=== PATIENT | female | born 1945 | race Caucasian/White ===

== ENCOUNTER → 2018-08-04 16:12 | Outpatient (CLI) | payer MEDICARE, OTHER, BC, SELFPAY | PROVIDERS: Visit Provider Family Medicine | DX: R30.0 Dysuria (principal) | CPT/HCPCS: 87086; 87088 ==

== ENCOUNTER → 2024-09-24 | Outpatient (CLI) | payer MEDICARE, OTHER, SELFPAY ==
[2024-09-24 10:59] LABS: Cholesterol 235 mg/dL (<=200); High Density Lipoprotein 53 mg/dL; Low Density Lipoprotein Calc. 143 mg/dL; Triglycerides 192 mg/dL; Very Low Density Lipoprotein 38 mg/dL (5-40); cholesterol:hdl ratio screen 4.42
[2024-09-24 11:01] LABS: Hemoglobin A1c 5.4 % (<=5.6)
== END | disposition home or self-care (01) ==
LOC: MTLAB 09:02
PROVIDERS: PCP Family Medicine; Referring Provider Psychiatry & Neurology Neurology; Visit Provider Psychiatry & Neurology Neurology
DX: I67.9 Cerebrovascular disease, unspecified (principal); E78.5 Hyperlipidemia, unspecified; R73.9 Hyperglycemia, unspecified
CPT/HCPCS: 36415; 80061; 83036

== ENCOUNTER → 2025-01-19 | Outpatient (CLI) | payer MEDICARE, OTHER, SELFPAY ==
--- OUTSIDE RECORDS SUMMARY | 2025-01-19 09:50 | XMS RPT_ITS | CCD ---
Author Organization [facility] Inform ion Partnership [facility] Care Team Providers Care Account Contact Associate Name Role Phone Mathieu Boateng MD Primary Care Provider [phone] Rafi SAMUEL, Dr. Murdock Primary Care Provider [phone] Parminder SAMUEL, Dr. Duong Attending Provider [phone] Parminder SAMUEL, Dr. Duong Referring Provider Rafi, Mathieu Primary Care Unavailable Eloisa Zurita Referring Unavailable Parminder, Eloisa Attending Unavailable Mathieu Boateng MD Primary Care Provider ELIOSA ZURITA Attending Unavailable RAFI, MATHIEU Primary Care Unavailable BAVELOIAS RM Attending Unavailable RAFI, MATHIEU Primary Care Unavailable ELOISA ZURITA Attending Unavailable RAFI, MATHIEU Primary Care Unavailable BAVJAG, ELOISA Attending Unavailable RAFI, MATHIEU Primary Care Unavailable ELOISA ZURITA Attending Unavailable ELOISA ZURITA Referring Unavailable RAFI, MATHIEU Primary Care Unavailable Allergies Allergy Classification Reported Allergen(s) Allergy Type Date of Onset Reaction(s) Facility (18 sources) Bacitracin / Polymyxin B Drug Allergy 1 [facility] (18 sources) Codeine Drug Allergy 6 [facility] (18 sources) Morphine Drug Allergy 6 Hives, Itching [facility] (18 sources) Penicillins Drug Intolerance 6 Hives, Itching, Rash [facility] (18 sources) Sulfonamides (Antibiotic) Propensity to adverse reactions 2 Nausea Only [facility] (11 sources) suvorexant Drug Allergy 4 [facility] Medications Current Medications Medication Drug Class(es) Dates Sig (Normalized) Sig (Original) acetaminophen 325 mg / butalbital 50 mg / caffeine 40 mg oral tablet (12 sources) Barbiturate, Central Nervous System Stimulant, Methylxanthine Start: 02-03-2024 End: 03-04-2024 take 1 tablet by mouth every two hours, then take 4 tablets by mouth every twenty-four hours butalbital-aceta minophen-caffein e 50-325-40 MG tablet Indications: Headache disorder take 1 tablet by mouth every 2 hours if needed for migraines - MAX OF 4 IN 24 HOURS 30 tablet 3 02/03/2024 03/04/2024 Active Start: 11-26-2023 End: 12-26-2023 take 1 tablet by mouth every two hours, then take 4 tablets by mouth every twenty-four hours fxmosdggnf-koavcyaebbbde-snlwgxfa 50-325 -40 MG tablet Indications: Headache disorder take 1 tablet by mouth every 2 hours if needed for migraines - MAX OF 4 IN 24 HOURS 30 tablet 1 11/26/2023 12/26/2023 Active Start: 03-23-2022 End: 05-04-2023 take 1 tablet by mouth every two hours, then take 4 tablets by mouth every twenty-four hours aykxttqprs-xetuostbefikg-hefzqisb 50-325 -40 MG tablet take 1 tablet by mouth every 2 hours if needed for migraines - MAX OF 4 IN 24 HOURS 45 tablet 6 04/04/2023 05/04/2023 Active aspirin 81 mg delayed release oral tablet (2 sources) Platelet Aggregation Inhibitor, Nonsteroidal Anti-inflammatory Drug Start: 10-22-2024 End: 10-22-2025 take 1 tablet by mouth once daily aspirin 81 MG EC tablet Indications: Cerebrovascular disease Take 1 tablet (81 mg) by mouth daily. 30 tablet 11 10/22/2024 10/22/2025 Active buPROPion hydrochloride 75 mg oral tablet (20 sources) Aminoketone Start: 05-29-2022 buPROPion (Wellbutrin) 75 MG tablet Indications: Headache disorder , Multifocal clinically isolated syndrome (HCC) Take 1 tab daily for 14 days, then half a tab daily for 14 days, then stop bupropion 30 tablet 05/29/2022 Active Start: 04-04-2022 End: 08-03-2024 take 1 tablet by mouth once daily buPROPion XL (Wellbutrin XL) 150 MG 24 hr tablet Indications: Headache disorder , Multifocal clinically isolated syndrome (HCC) Take 1 tablet (150 mg) by mouth daily. Do not crush, chew, or split. 30 tablet 11 04/04/2022 08/03/2024 Discontinued Start: 02-27-2022 End: 08-03-2024 take 1 tablet by mouth once daily buPROPion SR (Wellbutrin SR) 150 MG 12 hr tablet Take 150 mg by mouth daily. 02/27/2022 08/03/2024 Discontinued cholecalciferol 0.025 mg oral capsule (18 sources) Vitamin D take 1 capsule by mouth once daily cholecalciferol (Vitamin D-3) 25 MCG (1000 UT) capsule Take 1 capsule by mouth daily. Active gabapentin 800 mg oral tablet (20 sources) Anti-epileptic Agent Start: 11-26-19 End: 11-02-19 take 4 tablets by mouth once daily gabapentin (Neurontin) 800 MG tablet Indications: Primary insomnia , Headache disorder Take 4 tablets (3,200 mg) by mouth Nightly. 360 tablet 3 08/03/2024 Active Start: 07-06-2022 End: 07-03-2023 take 4 tablets by mouth once daily gabapentin (Neurontin) 800 MG tablet Indications: Headache disorder Take 4 tablets (3,200 mg) by mouth Nightly. 360 tablet 3 07/27/2022 04/04/2023 Discontinued (Reorder) Start: 04-04-2022 End: 05-21-2022 take 4 tablets by mouth once daily gabapentin (Neurontin) 800 MG tablet Indications: Headache disorder Take 4 tablets (3,200 mg) by mouth Nightly. 360 tablet 3 04/04/2022 05/21/2022 Discontinued (Reorder) Start: 05-27-2020 End: 08-02-2022 take 3-3.5 tablets by mouth once daily in the evening gabapentin (Neurontin) 800 MG tablet take 3-3.5 tablets by mouth every evening 05/27/2020 Active losartan potassium 50 mg oral tablet (18 sources) Angiotensin 2 Receptor Sana Start: 01-12-2022 take 1 tablet by mouth once daily losartan (Cozaar) 50 MG tablet Take 50 mg by mouth daily. 01/12/2022 Active rosuvastatin calcium 20 mg oral tablet (2 sources) HMG-CoA Reductase Inhibitor Start: 10-22-2024 End: 10-22-2025 take 1 tablet by mouth once daily rosuvastatin (Crestor) 20 MG tablet Indications: Cerebrovascular disease , Mixed hyperlipidemia Take 1 tablet (20 mg) by mouth daily. 30 tablet 2 10/22/2024 10/22/2025 Active sucralfate 1000 mg oral tablet (18 sources) Aluminum Complex Start: 01-13-2022 sucralfate (Carafate) 1 g tablet Take 1 g by mouth in the morning and 1 g at noon and 1 g before bedtime. 01/13/2022 Active Completed/Discontinued Medications Medication Drug Class(es) Dates Sig (Normalized) Sig (Original) gadopiclenol (Vueway) injection 7.5 mL (2 sources) Start: 09-04-2024 End: 09-04-2024 take 7.5 mL intravenously once as needed 7.5 mL, IntraVENous, IMG once PRN, contrast, Starting on Sat09/04/24 at 1416, For 1 dose propranolol hydrochloride 20 mg oral tablet (8 sources) beta-Adrenergic Sana Start: 02-03-2024 End: 02-02-2025 take 1 tablet by mouth twice daily propranolol (Inderal) 20 MG tablet Indications: Essential tremor Take 1 tablet (20 mg) by mouth 2 times daily. 60 tablet 11 02/03/2024 09/22/2024 Discontinued suvorexant 10 mg oral tablet (11 sources) Orexin Receptor Antagonist Start: 05-12-2022 End: 02-03-2024 take 1 tablet by mouth once daily as needed for sleep suvorexant (Belsomra) 10 MG tablet Indications: Chronic insomnia Take 1 tablet (10 mg) by mouth Nightly as needed for sleep. 30 tablet 2 05/17/2022 02/03/2024 Discontinued (Side effects) Problems Active Problems Problem Classification Problem Date Documented Date Episodic/Chronic Diabetes mellitus without complication (3 sources) Hyperglycemia; Translations: [Hyperglycemia, unspecified] Onset: 09-22-2024 09-22-2024 Episodic Disorders of lipid metabolism (7 sources) Hyperlipidemia; Translations: [Hyperlipidemia, unspecified] Onset: 09-22-2024 09-22-2024 Chronic Headache; including migraine (8 sources) Headache disorder; Translations: [Headache disorder] Episodic Headache; including migraine (2 sources) Headache; including migraine; Translations: [Headache, unspecified] Onset: 08-03-2024 Miscellaneous mental health disorders (13 sources) Chronic insomnia; Translations: [Psychophysiologic insomnia] Onset: 09-22-2024 04-04-2023 Chronic Multiple sclerosis (11 sources) Multiple sclerosis; Translations: [Multiple sclerosis] Onset: 09-22-2024 08-03-2024 Chronic Other and ill-defined cerebrovascular disease (3 sources) Cerebrovascular disease; Translations: [Cerebrovascular disease, unspecified] 09-22-2024 Chronic Other and ill-defined cerebrovascular disease (3 sources) Cerebrovascular disease, unspecified; Translations: [Cerebrovascular disease, unspecified] Onset: 09-22-2024 Chronic Other hereditary and degenerative nervous system conditions (5 sources) Essential tremor; Translations: [Essential tremor] Onset: 09-22-2024 02-03-2024 Chronic Other hereditary and degenerative nervous system conditions (1 source) Essential tremor; Translations: [Essential tremor] Onset: 09-22-2024 Chronic Other nervous system disorders (5 sources) Clinically isolated syndrome; 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, unspecified] 04-04-2023 Chronic Other nervous system disorders (2 sources) Sleep related bruxism; 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] 04-04-2023 Chronic Other nervous system disorders (2 sources) Demyelinating disease of central nervous system, unspecified; 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, unspecified (HCC)] Onset: 02-03-2024 Chronic Other nervous system disorders (11 sources) Impaired cognition; Translations: [Other symptoms and signs involving cognitive functions and awareness] 02-03-2024 Episodic Other nervous system disorders (2 sources) Other symptoms and signs involving cognitive functions and awareness; Translations: [Other symptoms and signs involving cognitive functions and awareness] Onset: 08-03-2024 Episodic Residual codes; unclassified (3 sources) Amnesia; Translations: [Other amnesia] 02-03-2024 Episodic Past or Other Problems Problem Classification Problem Date Documented Da te Episodic/Chronic Malaise and fatigue (5 sources) Fatigue; Translations: [Other fatigue] Onset: 02-03-2024 02-03-2024 Episodic Residual codes; unclassified (2 sources) Other amnesia; Translations: [Other amnesia] Onset: 02-03-2024 Episodic Results Test Name Value Interpretation Reference Range Facility Office Visiton 10-22-2024 Follow-up visit [id number] Shayna Pressley 1945 F Date Provider Department Center 10/22/2024 [id number] ZURITA [facility] None Family History Problem Relation Age of Onset Lung cancer Father Family Status - Relation Status Age at Father Mother Notes: hip fracture complications Level of Service:41706 [place] OFFICE/OUTPATIENT ESTABLISHED LOW MDM 20 MIN Reason for Visit and Comments: Follow-up [586413] Insomnia [811157] Normal [facility] Progress Noteon 10-22-2024 Progress Note [facility] [place] [address] [facility] [address] [facility] [address] Dept: [phone] Dept Loc: [phone] Visit type: Established Patient Reason for Visit: Follow-up and Insomnia Assessment and Plan 1. Cerebrovascular disease - rosuvastatin (Crestor) 20 MG tablet; Take 1 tablet (20 mg) by mouth daily., Starting Alejandrina 10/22/2024, Until Sat10/22/2025, Normal - aspirin 81 MG EC tablet; Take 1 tablet (81 mg) by mouth daily., Starting Alejandrina 10/22/2024, Until Sat10/22/2025, Normal 2. Mixed hyperlipidemia - rosuvastatin (Crestor) 20 MG tablet; Take 1 tablet (20 mg) by mouth daily., Starting Alejandrina 10/22/2024, Until Sat10/22/2025, Normal - Lipid panel 3. Primary insomnia Subjective HPI: She reports that her family has been reporting that she is repeating herself. She reports that the eye doctor thinks the vision changes are from developing cataracts. She is not getting headaches that frequently. She reports taht she has occl headaches that she calls TMJ headaches, but they are infrequent. She reports that the essential tremor is no worse. She reports that she is no longer waking up during sleep. She has been noticing tremor in her head. Her handwriting is awful. There is no worsening of the memory. Ask informant to rate the patient's ability using the following scoring system: Dependent= 3 Requires Assistance= 2 Has difficulty but does by self= 1 Normal= 0 Never did the activity but could do now= 0 Never did and would have difficulty now= 1 Score Writing checks, paying bills, balancing checkbook 0 Assembling tax records, business affairs, or papers 0 Shopping alone for clothes, household necessities or groceries 0 Playing a game of skill, working on a hobby 0 Heating water, making a cup of coffee turning off stove after use 0 Preparing a balanced meal 0 Keeping track of current events 0 Paying attention to, understanding, discussing TV, book, magazine 0 Remembering appointments, family occasions, holidays, medications 0 Traveling out of neighborhood, driving, arranging to take a bus 0 Total Score 0 Evaluation Sum scores (range 0-30). Cut-point of 9 (dependent in 3 or more activities) is recommended to indicate impaired function and possible cognitive impairment. We reviewed that her recent vision changes are primarily in the left eye. It was the right eye that had optic neuritis. REVIEW OF SYSTEMS: Review of Systems Constitutional: Negative for appetite change, chills, diaphoresis, fever and unexpected weight change. HENT: Positive for dental problem. Negative for mouth sores. Eyes: Negative for discharge and itching. Respiratory: Negative for chest tightness. Cardiovascular: Negative for chest pain and leg swelling. Gastrointestinal: Negative for rectal pain and vomiting. Endocrine: Negative for polydipsia, polyphagia and polyuria. Genitourinary: Negative for decreased urine volume, flank pain and genital sores. Musculoskeletal: Negative for arthralgias. Skin: Negative for color change. Allergic/Immunologic: Negative for food allergies and immunocompromised state. Neurological: Positive for headaches. TMJ area headache Hematological: Negative for adenopathy. Does not bruise/bleed easily. Psychiatric/Behaviora l: Negative for agitation, behavioral problems, decreased concentration, sleep disturbance and suicidal ideas. Allergies Allergen Reactions Bacitracin-Polymyxin B Belsomra [Suvorexant] Paradoxical insomnia Codeine Other reaction(s): GI Upset Morphine Hives and Itching Sulfa Antibiotics Nausea Only Penicillins Hives, Itching and Rash Current Outpatient Medications: cholecalciferol (Vitamin D-3) 25 MCG (1000 UT) capsule, Take 1 capsule by mouth daily., Disp: , Rfl: gabapentin (Neurontin) 800 MG tablet, Take 4 tablets (3,200 mg) by mouth Nightly., Disp: 360 tablet, Rfl: 3 losartan (Cozaar) 50 MG tablet, Take 50 mg by mouth daily., Disp: , Rfl: sucralfate (Carafate) 1 g tablet, Take 1 g by mouth in the morning and 1 g at noon and 1 g before bedtime., Disp: , Rfl: aspirin 81 MG EC tablet, Take 1 tablet (81 mg) by mouth daily., Disp: 30 tablet, Rfl: 11 rosuvastatin (Crestor) 20 MG tablet, Take 1 tablet (20 mg) by mouth daily., Disp: 30 tablet, Rfl: 2 Past Medical History: Diagnosis Date Hypertension Multiple sclerosis (HCC) Social History Tobacco Use Smoking status: Former Current packs/day: 0.00 Average packs/day: 0.5 packs/day for 41.7 years (20.8 ttl pk-yrs) Types: Cigarettes Start date: 10/16/1969 Quit date: 06/13/2011 Years since quittin.3 Smokeless tobacco: Never Substance Use Topics Alcohol use: Yes Alcohol/week: 7.0 standard drinks of alcohol Types: 7 Glasses of wine per week Past Surgical History: Procedure Laterality Date BREAST SURGERY CHOLECYSTECTOMY HYSTERECTOMY Family History Problem Relation Nam (more content not included)... Normal [facility] 36on 09-25-2024 36 Labs faxed over to [phone] Normal [facility] Calculated very low density lipoprotein (VLDL) cholesterol measurementOrdered By: Eloisa Zurita on 09-24-2024 Calculated very low density lipoprotein (VLDL) cholesterol measurement 38 mg/dL 5-40 [facility] Hemoglobin A1con 09-24-2024 HbA1c (Bld) [Mass fraction] 5.4 % Normal <=5.6 [facility] Comment on above: Result Comment: Norm al < 5.7 % Prediabetic 5.7 - 6.4 % Diabetic >or= 6.5 % Please note range changes. Performed By: #### L 500.0, L501.9985 #### [facility] [address] [place], [address] Hemoglobin A1c percentageOrd ered By: Eloisa Zurita on 09-24-2024 HbA1c (Bld) [Mass fraction] 5.4 % <5.7 [facility] Comment on above: Normal < 5.7 % Predi abetic 5.7 - 6.4 % Diabetic >or= 6.5 % Please note range changes. LDL calc ser/plasOrdered By: Eloisa Zurita on 09-24-2024 Cholesterol in LDL [Mass/Vol] 143 mg/dL [facility] Comment on above: Okpqyhgwac=800-588 m g/dL & Higher Pfpr=754 mg/dL or greater Lipid Profileon 09-24-2024 CHOL:HDL 4.42 Normal [facility] Comment on above: Performed By: #### L 500.4100, L501.9985 #### [facility] [address] [place], [address] Cholesterol [Mass/Vol] 235 mg/dL High <=200 [facility] Comment on above: Result Comment: Chol esterol level, Desirable <200 mg/dL Borderline high cholesterol 200-239 mg/dL High cholesterol >=240 mg/dL Recommendations of the NCEP Adult Treatment Panel for the following risk-cutoff thresholds for the [place] population. Performed By: #### L 500.4100, L501.9985 #### [facility] [address] [place], [address] Cholesterol in HDL [Mass/Vol] 53 mg/dL Normal [facility] Comment on above: Result Comment: Bela onal Cholesterol Education Program (NCEP) guidelines: <40 mg/dL: Low HDL-cholesterol (major risk factor for CHD) >= 60 mg/dL: High HDL-cholesterol (negative risk factor for CHD) HDL-cholesterol is affected by a number of factors, e.g. smoking, exercise, hormones, sex and age. Performed By: #### L 500.4100, L501.9985 #### [facility] [address] [place], [address] Cholesterol in LDL [Mass/Vol] 143 mg/dL Normal [facility] Comment on above: Result Comment: Bord gjluqk=680-130 mg/dL Higher Insj=326 mg/dL or greater Performed By: #### L 500.4100, L501.9985 #### [facility] [address] [place], [address] Cholesterol in VLDL [Mass/Vol] 38 mg/dL Normal 5-40 [facility] Comment on above: Performed By: #### L 500.4100, [id number] #### [facility] [address] [place], [place], [address] Triglyceride [Mass/Vol] 192 mg/dL Normal [facility] Comment on above: Result Comment: The drugs N-Acetylcysteine and Metamizole may falsely depress this assay. Normal range: <150 mg/dL Borderline High: 150-199 mg/dL High: 200-499 mg/dL Very High: >500 mg/dL Performed By: #### L 500.4100, [id number] #### [facility] [address] [place], [place], [address] Screening total cholesterol/ high density lipoprotein (HDL) cholesterol ratioOrdered By: Eloisa Zurita on 09-24-2024 Cholesterol.total/Hamida sterol in HDL [Mass ratio] 4.42 {ratio} [facility] Serum or plasma cholesterol in HDL measurement (mass/volume)Ordered By: Eloisa Zurita on 09-24-2024 Cholesterol in HDL [Mass/Vol] 53 mg/dL >40 [facility] Comment on above: National Cholesterol Education Program (NCEP) guidelines:<40 mg/dL: Low HDL-cholesterol (major risk factor for CHD)>= 60 mg/dL: High HDL-cholesterol (negative risk factor for CHD)HDL-cholesterol is affected by a number of factors, e.g. smoking, exercise, hormones, sex and age. Serum or plasma cholesterol measurement (mass/volume)Ordered By: Eloisa Zurita on 09-24-2024 Cholesterol [Mass/Vol] 235 mg/dL High <201 [facility] Comment on above: Cholesterol level, D esirable <200 mg/dLBorderline high cholesterol 200-239 mg/dLHigh cholesterol >=240 mg/dLRecommendations of the NCEP Adult Treatment Panel for the following risk-cutoff thresholds for the [place] population. Triglycerides measurementOrd ered By: Eloisa Zurita on 09-24-2024 Triglyceride [Mass/Vol] 192 mg/dL <199 [facility] Comment on above: The drugs N-Acetylcy steine and Metamizole may falsely depress this assay. Normal range: <150 mg/dLBorderline High: 150-199 mg/dLHigh: 200-499 mg/dLVery High: >500 mg/dL Office Visiton 09-22-2024 Follow-up visit [id number] Shayna Pressley 1945 F Date Provider Department Center 09/22/2024 [id number] ZURITA [facility] None Family History Problem Relation Age of Onset Lung cancer Father Family Status - Relation Status Age at Father Mother Notes: hip fracture complications Level of Service:23324 [place] OFFICE/OUTPATIENT ESTABLISHED MOD MDM 30 MIN Reason for Visit and Comments: Follow-up [108763] Insomnia [369525] - Normal [facility] Progress Noteon 09-22-2024 Progress Note [facility] [place] [address] [facility] [address] [facility] [address] Dept: [phone] Dept Loc: [phone] Visit type: Established Patient Reason for Visit: Follow-up and Insomnia (/) Assessment and Plan 1. Cerebrovascular disease - Lipid panel - Hemoglobin A1c 2. Multiple sclerosis (HCC) 3. Primary insomnia 4. Essential tremor 5. Hyperlipidemia, unspecified hyperlipidemia type - Lipid panel 6. Hyperglycemia - Hemoglobin A1c Subjective HPI: She reports that her family has been reporting that she is repeating herself. She reports that the eye doctor thinks the vision changes are from developing cataracts. She is not getting headaches that frequently. She reports taht she has occl headaches that she calls TMJ headaches, but they are infrequent. She reports that the essential tremor is no worse. She reports that she is no longer waking up during sleep. She has been noticing tremor in her head. Her handwriting is awful. There is no worsening of the memory. Ask informant to rate the patient's ability using the following scoring system: Dependent= 3 Requires Assistance= 2 Has difficulty but does by self= 1 Normal= 0 Never did the activity but could do now= 0 Never did and would have difficulty now= 1 Score Writing checks, paying bills, balancing checkbook 0 Assembling tax records, business affairs, or papers 0 Shopping alone for clothes, household necessities or groceries 0 Playing a game of skill, working on a hobby 0 Heating water, making a cup of coffee turning off stove after use 0 Preparing a balanced meal 0 Keeping track of current events 0 Paying attention to, understanding, discussing TV, book, magazine 0 Remembering appointments, family occasions, holidays, medications 0 Traveling out of neighborhood, driving, arranging to take a bus 0 Total Score 0 Evaluation Sum scores (range 0-30). Cut-point of 9 (dependent in 3 or more activities) is recommended to indicate impaired function and possible cognitive impairment. We reviewed that her recent vision changes are primarily in the left eye. It was the right eye that had optic neuritis. REVIEW OF SYSTEMS: Review of Systems Constitutional: Negative for appetite change, chills, diaphoresis, fever and unexpected weight change. HENT: Negative for dental problem and mouth sores. Eyes: Negative for discharge and itching. Respiratory: Negative for chest tightness. Cardiovascular: Negative for chest pain and leg swelling. Gastrointestinal: Negative for rectal pain and vomiting. Endocrine: Negative for polydipsia, polyphagia and polyuria. Genitourinary: Negative for decreased urine volume, flank pain and genital sores. Musculoskeletal: Negative for arthralgias. Skin: Negative for color change. Allergic/Immunologic: Negative for food allergies and immunocompromised state. Neurological: Positive for headaches. TMJ area headache Hematological: Negative for adenopathy. Does not bruise/bleed easily. Psychiatric/Behaviora l: Negative for agitation, behavioral problems, decreased concentration, sleep disturbance and suicidal ideas. Allergies Allergen Reactions Bacitracin-Polymyxin B Belsomra [Suvorexant] Paradoxical insomnia Codeine Other reaction(s): GI Upset Morphine Hives and Itching Sulfa Antibiotics Nausea Only Penicillins Hives, Itching and Rash Current Outpatient Medications: cholecalciferol (Vitamin D-3) 25 MCG (1000 UT) capsule, Take 1 capsule by mouth daily., Disp: , Rfl: gabapentin (Neurontin) 800 MG tablet, Take 4 tablets (3,200 mg) by mouth Nightly., Disp: 360 tablet, Rfl: 3 losartan (Cozaar) 50 MG tablet, Take 50 mg by mouth daily., Disp: , Rfl: sucralfate (Carafate) 1 g tablet, Take 1 g by mouth in the morning and 1 g at noon and 1 g before bedtime., Disp: , Rfl: Past Medical History: Diagnosis Date Hypertension Multiple sclerosis (HCC) Social History Tobacco Use Smoking status: Former Current packs/day: 0.00 Average packs/day: 0.5 packs/day for 41.7 years (20.8 ttl pk-yrs) Types: Cigarettes Start date: 10/16/1969 Quit date: 06/13/2011 Years since quittin.2 Smokeless tobacco: Never Substance Use Topics Alcohol use: Yes Alcohol/week: 7.0 standard drinks of alcohol Types: 7 Glasses of wine per week Past Surgical History: Procedure Laterality Date BREAST SURGERY CHOLECYSTECTOMY HYSTERECTOMY Family History Problem Relation Name Age of Onset Lung cancer Father Objective Vitals: BP (!) 151/77 (BP Location: Right arm, Patient Position: Sitting, BP Cuff Size: Adult) Pulse 64 Ht 5' 7 (1.702 m) Wt 175 lb 6.4 oz (79.6 kg) BMI 27.47 kg/m? General Appearance: Patient is in no apparent distress. Head is normocephalic, atraumatic. Cardiovascular: Regular rate and rhythm. No heart murmurs. No carotid bruit Neurologic: Mentation: Alert and o (more content not included)... Normal [facility] Office Visiton 08-03-2024 Follow-up visit [id number] Shayna Pressley 1945 F Date Provider Department Center 08/03/2024 [id number]-FEKKPELOISA ZURITA [facility] None Family History Problem Relation Age of Onset Lung cancer Father Family Status - Relation Status Age at Father Mother Notes: hip fracture complications Level of Service:25978 [place] OFFICE/OUTPATIENT ESTABLISHED MOD MDM 30 MIN Reason for Visit and Comments: Follow-up [821491] Sleeping Problem [347] Med Management [0826030969] Tremors [854512] Normal [facility] Progress Noteon 08-03-2024 Progress Note [facility] NEUR[facility] [address] [facility] [address] Dept: [phone] Dept Loc: [phone] Visit type: Established Patient Reason for Visit: Follow-up, Sleeping Problem, Med Management, and Tremors Assessment and Plan 1. Primary insomnia 2. Multiple sclerosis (HCC) - MR brain w and wo contrast - Creatinine, Serum 3. Cognitive impairment - MR brain w and wo contrast - Creatinine, Serum Subjective HPI: She reports that her family reports that she is repeating herself. She reports that she was feeling that her vision was blurred. She decided that it was the propranolol. She stopped the medication. She reports that she had many side effects. She still has some blurry vision but it is a bit better with the propranolol. She is not getting headaches that frequently. She reports taht she has occl headaches that she calls TMJ headaches, but they are infrequent. She reports that she is waking up during sleep. She is waking up at 5 AM for no apparent cause. She thinks that the propranlol is the difference. She is able to get back to sleep. She has been noticing tremor in her head. Her handwriting is awful. Ask informant to rate the patient's ability using the following scoring system: Dependent= 3 Requires Assistance= 2 Has difficulty but does by self= 1 Normal= 0 Never did the activity but could do now= 0 Never did and would have difficulty now= 1 Score Writing checks, paying bills, balancing checkbook 0 Assembling tax records, business affairs, or papers 0 Shopping alone for clothes, household necessities or groceries 0 Playing a game of skill, working on a hobby 0 Heating water, making a cup of coffee turning off stove after use 0 Preparing a balanced meal 0 Keeping track of current events 0 Paying attention to, understanding, discussing TV, book, magazine 0 Remembering appointments, family occasions, holidays, medications 0 Traveling out of neighborhood, driving, arranging to take a bus 0 Total Score 0 Evaluation Sum scores (range 0-30). Cut-point of 9 (dependent in 3 or more activities) is recommended to indicate impaired function and possible cognitive impairment. We reviewed that her recent vision changes are primarily in the left eye. It was the right eye that had optic neuritis. REVIEW OF SYSTEMS: Review of Systems Constitutional: Negative for appetite change, chills, diaphoresis, fever and unexpected weight change. HENT: Negative for dental problem and mouth sores. Eyes: Negative for discharge and itching. Respiratory: Negative for chest tightness. Cardiovascular: Negative for chest pain and leg swelling. Gastrointestinal: Negative for rectal pain and vomiting. Endocrine: Negative for polydipsia, polyphagia and polyuria. Genitourinary: Negative for decreased urine volume, flank pain and genital sores. Musculoskeletal: Negative for arthralgias. Skin: Negative for color change. Allergic/Immunologic: Negative for food allergies and immunocompromised state. Neurological: Positive for headaches. TMJ area headache Hematological: Negative for adenopathy. Does not bruise/bleed easily. Psychiatric/Behaviora l: Negative for agitation, behavioral problems, decreased concentration, sleep disturbance and suicidal ideas. Allergies Allergen Reactions Bacitracin-Polymyxin B Belsomra [Suvorexant] Paradoxical insomnia Codeine Other reaction(s): GI Upset Morphine Hives and Itching Sulfa Antibiotics Nausea Only Penicillins Hives, Itching and Rash Current Outpatient Medications: cholecalciferol (Vitamin D-3) 25 MCG (1000 UT) capsule, Take 1 capsule by mouth daily., Disp: , Rfl: gabapentin (Neurontin) 800 MG tablet, Take 4 tablets (3,200 mg) by mouth Nightly., Disp: 360 tablet, Rfl: 3 losartan (Cozaar) 50 MG tablet, Take 50 mg by mouth daily., Disp: , Rfl: sucralfate (Carafate) 1 g tablet, Take 1 g by mouth in the morning and 1 g at noon and 1 g before bedtime., Disp: , Rfl: buPROPion SR (Wellbutrin SR) 150 MG 12 hr tablet, Take 150 mg by mouth daily., Disp: , Rfl: buPROPion XL (Wellbutrin XL) 150 MG 24 hr tablet, Take 1 tablet (150 mg) by mouth daily. Do not crush, chew, or split. (Patient not taking: Reported on 04/04/2023), Disp: 30 tablet, Rfl: 11 propranolol (Inderal) 20 MG tablet, Take 1 tablet (20 mg) by mouth 2 times daily. (Patient not taking: Reported on 08/03/2024), Disp: 60 tablet, Rfl: 11 Past Medical History: Diagnosis Date Hypertension Multiple sclerosis (HCC) Social History Tobacco Use Smoking status: Former Current packs/day: 0.00 Average packs/day: 0.5 packs/day for 41.7 years (20.8 ttl pk-yrs) Types: Cigarettes Start date: 10/16/1969 Quit date: 06/13/2011 Years since quittin.1 Smokeless tobacco: Never Substance Use Topics Alcohol use: Yes Alcohol/week: 7.0 standard drinks of alcohol Types: 7 Gl (more content not included)... Normal [facility] Office Visiton 02-03-2024 Follow-up visit [id number] Shayna Pressley 1945 F Date Provider Department Center 02/03/2024 [id number]-ASQVUELOISA ZURITA [facility] [place] None Family History Problem Relation Age of Onset Lung cancer Father Family Status - Relation Status Age at Father Mother Notes: hip fracture complications Level of Service:92790 [place] OFFICE/OUTPATIENT ESTABLISHED HIGH MDM 40 MIN Reason for Visit and Comments: Follow-up [809705] Sleeping Problem [347] Normal [facility] Progress Noteon 02-03-2024 Progress Note [facility] NEUROLOGY [place] [address] [facility] [address] [facility] [address] Dept: [phone] Dept Loc: [phone] Visit type: Established Patient Reason for Visit: Follow-up and Sleeping Problem Assessment and Plan 1. Primary insomnia - gabapentin (Neurontin) 800 MG tablet; Take 4 tablets (3,200 mg) by mouth Nightly., Starting Sat02/03/2024, Until 05/03/2024, Normal 2. Clinically isolated syndrome (CMS/HCC) (HCC) 3. Headache disorder - gabapentin (Neurontin) 800 MG tablet; Take 4 tablets (3,200 mg) by mouth Nightly., Starting Sat02/03/2024, Until 05/03/2024, Normal - butalbital-acetaminop hen-caffeine 50-325-40 MG tablet; take 1 tablet by mouth every 2 hours if needed for migraines - MAX OF 4 IN 24 HOURS, Normal 4. Essential tremor - propranolol (Inderal) 20 MG tablet; Take 1 tablet (20 mg) by mouth 2 times daily., Starting Sat02/03/2024, Until Tu02/02/2025, Normal 5. Cognitive impairment - Vitamin B1 ([facility]) - Vitamin B12 - Vitamin B6 - TSH 6. Memory loss - TSH 7. Fatigue, unspecified type - TSH Subjective HPI: She reports that she is having GERD from umbilical hernia. She is not getting headaches that frequently. She reports that she occl takes the butalbital but it is very infrequent. She denies sensory loss, weakness, vision loss to suggest an MS attack. She reports that she is sleeping well, but is adding OTC sleeep aide to my meds. She is having trouble with forgetting what she is doing in the midst of doing it. She has been noticing tremor in her head. Her handwriting is awful. Ask informant to rate the patient's ability using the following scoring system: Dependent= 3 Requires Assistance= 2 Has difficulty but does by self= 1 Normal= 0 Never did the activity but could do now= 0 Never did and would have difficulty now= 1 Score Writing checks, paying bills, balancing checkbook 0 Assembling tax records, business affairs, or papers 0 Shopping alone for clothes, household necessities or groceries 0 Playing a game of skill, working on a hobby 0 Heating water, making a cup of coffee turning off stove after use 0 Preparing a balanced meal 0 Keeping track of current events 0 Paying attention to, understanding, discussing TV, book, magazine 0 Remembering appointments, family occasions, holidays, medications 0 Traveling out of neighborhood, driving, arranging to take a bus 0 Total Score 0 Evaluation Sum scores (range 0-30). Cut-point of 9 (dependent in 3 or more activities) is recommended to indicate impaired function and possible cognitive impairment. REVIEW OF SYSTEMS: Review of Systems Constitutional: Negative for appetite change, chills, diaphoresis, fever and unexpected weight change. HENT: Negative for dental problem and mouth sores. Eyes: Negative for discharge and itching. Respiratory: Negative for chest tightness. Cardiovascular: Negative for chest pain and leg swelling. Gastrointestinal: Negative for rectal pain and vomiting. Endocrine: Negative for polydipsia, polyphagia and polyuria. Genitourinary: Negative for decreased urine volume, flank pain and genital sores. Musculoskeletal: Negative for arthralgias. Skin: Negative for color change. Allergic/Immunologic: Negative for food allergies and immunocompromised state. Neurological: Positive for headaches. TMJ area headache Hematological: Negative for adenopathy. Does not bruise/bleed easily. Psychiatric/Behaviora l: Negative for agitation, behavioral problems, decreased concentration, sleep disturbance and suicidal ideas. Allergies Allergen Reactions Bacitracin-Polymyxin B Belsomra [Suvorexant] Paradoxical insomnia Codeine Other reaction(s): GI Upset Morphine Hives and Itching Sulfa Antibiotics Nausea Only Penicillins Hives, Itching and Rash Current Outpatient Medications: cholecalciferol (Vitamin D-3) 25 MCG (1000 UT) capsule, Take 1 capsule by mouth daily., Disp: , Rfl: losartan (Cozaar) 50 MG tablet, Take 50 mg by mouth daily., Disp: , Rfl: sucralfate (Carafate) 1 g tablet, Take 1 g by mouth in the morning and 1 g at noon and 1 g before bedtime., Disp: , Rfl: buPROPion SR (Wellbutrin SR) 150 MG 12 hr tablet, Take 150 mg by mouth daily., Disp: , Rfl: buPROPion XL (Wellbutrin XL) 150 MG 24 hr tablet, Take 1 tablet (150 mg) by mouth daily. Do not crush, chew, or split. (Patient not taking: Reported on 04/04/2023), Disp: 30 tablet, Rfl: 11 butalbital-acetaminop hen-caffeine 50-325-40 MG tablet, take 1 tablet by mouth every 2 hours if needed for migraines - MAX OF 4 IN 24 HOURS, Disp: 30 tablet, Rfl: 3 gabapentin (Neurontin) 800 MG tablet, Take 4 tablets (3,200 mg) by mouth Nightly., Disp: 360 tablet, Rfl: 3 propranolol (Inderal) 20 MG tablet, Take 1 tablet (20 mg) by mouth 2 times daily., Disp: 60 tablet, Rfl: 11 Past Medical History: Diagnosis Date Hyperten (more content not included)... [facility] 36on 11-27-[address] [facility]. Spoke with Pharmacist Be. Be given a verbal order. Butalbital-acetaminop hen-caffeine 50-325-40 mg. Take 1 tablet by mouth every 2 hours if needed for migraine-Max of 4 in 24 hours. Quantity: 30 Refills: 1 Pharmacist repeated back and verbalized understanding. Please see below. butalbital-acetaminop hen-caffeine 50-325-40 MG tablet [[id number]] Order Details Dose, Route, Frequency: As Directed Dispense Quantity: 30 tablet Refills: 1 Sig: take 1 tablet by mouth every 2 hours if needed for migraines - MAX OF 4 IN 24 HOURS Start Date: 11/26/23 End Date: 12/26/23 Written Date: 11/26/23 Rx Expiration Date: 11/25/24 Associated Diagnoses: Headache disorder [R51.9] Original Order: butalbital-acetaminop hen-caffeine 50-325-40 MG tablet [[id number]] Providers Ordering and Authorizing Provider: Eloisa Zurita MD MELVIN #: [id number] Ordering User: Eloisa Zurita MD Pharmacy [address] [facility] [address] MELVIN #: -- [facility] 36on 11-26-2023 36 Yes it is ok [facility] 36 Okay to give verbal order? Please advise. [facility] 36 Name of caller: Be Contact phone number: [phone] Relationship to Patient: Pharmacy Provider: Dr Zurita Practice: Neur Chief Complaint/Reason for Call: butalbital-acetaminop hen-caffeine 50-325-40 MG tablet [[id number]] Order Details Dose, Route, Frequency: As Directed Dispense Quantity: 30 tablet Refills: 1 Sig: take 1 tablet by mouth every 2 hours if needed for migraines - MAX OF 4 IN 24 HOURS Prescription was not sent on approved device for a controlled substance. Can try to re-send or call to validate as approved prescription. Current prescription has been de-activated Best time of day caller can be reached: any Patient advised that office/PCP has 24-48 business hours to return their call: No [facility] CNOVon 11-04-2018 CNOV Office Visit ([facility] ) SHAYNA PRESSLEY ([id number]) 1945 F Date Time Provider Department 11/04/18 2:15 PM CHELY MARTINEZ [facility] During your visit today, we recorded the following information about you: Temperature Pulse Respiration Blood pressure 98.3 degrees 80/minute 18/minute 142/86 Weight 92.9 kg Chely Martinez APRN.NURSING HOME ADMINISTRATOR 11/04/2018 4:34 PM Signed Subjective HPI Pt presents with c/o left middle finger pain and swelling x 10 days. States dropped a plant on it. Finger became very swollen with an hour of injury. Pt has several small scabbed areas noted to finger. When asked if they were from the injury she states No, the swelling was so bad that I began poking by finger with needles to get the swelling out. Denies drainage, fever, chills, myalgias, sensory changes, limited ROM. Can move all finger joints but is painful. Has not applied ice or heat or taken any OTC medications. Review of Systems Constitutional: Negative for chills and fever. Musculoskeletal: Positive for joint pain. Negative for falls and neck pain. Objective Physical Exam Constitutional: She is oriented to person, place, and time and well-developed, well-nourished, and in no distress. No distress. Musculoskeletal: Left hand: She exhibits tenderness, bony tenderness and swelling. She exhibits normal range of motion, normal two-point discrimination, normal capillary refill, no deformity and no laceration. Normal sensation noted. Normal strength noted. Hands: Full active ROM against resistance. Moderate edema and ecchymosis at PIP and DID, 4 fine puncture wounds with scabbing noted between PIP and DIP. Sensory intact. Cap refill 2 sec. Brachial and radial pulses 2+. Neurological: She is alert and oriented to person, place, and time. Skin: Skin is warm and dry. She is not diaphoretic. BP 142/86 Pulse 80 Temp 36.8 ?C (98.3 ?F) (Tympanic) Resp 18 Wt 92.9 kg (204 lb 12.8 oz) .Patient presents with: left middle finger pain: x 10 days No past medical history on file. No past surgical history on file. ALLERGIES Patient has no active allergies. MEDICATIONS losartan (COZAAR) 25 mg tablet Take 25 mg by mouth once daily. hydrochlorothiazide (HYDRODIURIL, ESIDRIX) 12.5 mg tablet Take 12.5 mg by mouth once daily. BUPROPION HCL ORAL Take 1 tablet by mouth once daily. GABAPENTIN ORAL Take 3 capsules by mouth daily at bedtime. triamcinolone acetonide (KENALOG) 0.5 % cream Apply 1 application to affected area twice daily. For rash/itching. Apply sparingly. Avoid face/skin fold. mupirocin (BACTROBAN) 2 % ointment Apply 1 application to affected area three times daily. diclofenac, EC, (VOLTAREN) 50 mg EC tablet Take 1 tablet by mouth three times daily as needed for up to 7 days. predniSONE (DELTASONE) 20 mg tablet Take 1 tablet by mouth once daily. Take daily with food. No family history on file. Social History Tobacco Use - Smoking status: Former Smoker Types: Cigarettes - Smokeless tobacco: Never Used Substance Use Topics - Alcohol use: Not on file - Drug use: Not on file ASSESSMENT/PLAN: 1. Pain of finger of left hand - ICD9: 729.5, ICD10: M79.645 (primary diagnosis) - DICLOFENAC SODIUM 50 MG TABLET,DELAYED RELEASE 2. Injury of finger of left hand, initial encounter - ICD9: 959.5, ICD10: S69.92XA - XR DIGIT GENERAL 3V FRONTAL/LAT/OBL LT Impression: no acute fracture. Soft tissue swelling. - MUPIROCIN 2 % TOPICAL OINTMENT Encouraged application of heat prn. Elevate prn. Reviewed red flag SANDS secondary skin infection. The patient is instructed to return or seek emergency treatment if symptoms become worse or with any acute change in condition. The patient verbalizes understanding and is in agreement with plan of care. Chely Martinez CNP Referring Provider: SELF [200] Allergies As of Date: 11/04/2018 (No Active Allergies) Date Reviewed: 11/04/2018 Reviewed by: Heather Cabrera LPN - Fully Assessed Reason for Visit: left middle finger pain [Other] Cmt: x 10 days Primary Visit Diagnosis:Pain of finger of left hand [M79.645] Other Visit Diagnosis:Injury of finger of left hand, initial encounter [S69.92XA] Order(s):XR DIGIT GENERAL 3V FRONTAL/LAT/OBL LT [[id number]] Order #: [id number] FUTURE mupirocin (BACTROBAN) 2 % ointmentApply 1 application to affected area three times daily.Disp: 30 gRfl: 0 diclofenac, EC, (VOLTAREN) 50 mg EC tabletTake 1 tablet by mouth three times daily as needed for up to 7 days.Disp: 21 tabletRfl: 0 Prescriptions as of 11/04/2018 Sig: LOSARTAN 25 MG TABLET Take 25 mg by mouth once rabia* HYDROCHLOROTHIAZIDE 12.5 MG T* Take 12.5 mg by mouth once da* BUPROPION HCL ORAL Take 1 tablet by mouth once d* GABAPENTIN ORAL Take 3 capsules by mouth rabia* TRIAMCINOLONE ACETONIDE 0.5 %* Apply 1 application to affect* MUPIROCIN 2 % TOPICAL OINTMENT Apply 1 application to affect* DICLOFENAC SODIUM 50 MG TABLE* Take 1 tablet by mouth three * PREDNISONE 20 MG TABLET Take 1 tablet by mouth once d* Patient not taking: Reported on 11/04/2018 Problem List As Of Date: 11/04/2018 (None) Prescriptions ordered this encounter Disp Refills Start End MUPIROCIN 2 % TOPICAL OINTMENT 30 g 0 11/04/2018 Route: TOPICAL Sig: Apply 1 application to affected area three times daily. DICLOFENAC SODIUM 50 MG TABLET,DELAY* 21 t* 0 11/04/2018 11/11/2018 Route: ORAL Sig: Take 1 tablet by mouth three times daily as needed for up to 7 days. Encounter Status:Closed by CHELY MARTINEZ CNP on 11/04/18 [facility] PROGRESSon 11-04-2018 PROGRESS HNO ID: [id number] Author: Chely Martinez Service: ? Author Type: Nurse Practitioner Type: Progress Notes Filed: 11/04/2018 4:34 PM Note Text: Subjective HPI Pt presents with c/o left middle finger pain and swelling x 10 days. States dropped a plant on it. Finger became very swollen with an hour of injury. Pt has several small scabbed areas noted to finger. When asked if they were from the injury she states No, the swelling was so bad that I began poking by finger with needles to get the swelling out. Denies drainage, fever, chills, myalgias, sensory changes, limited ROM. Can move all finger joints but is painful. Has not applied ice or heat or taken any OTC medications. Review of Systems Constitutional: Negative for chills and fever. Musculoskeletal: Positive for joint pain. Negative for falls and neck pain. Objective Physical Exam Constitutional: She is oriented to person, place, and time and well-developed, well-nourished, and in no distress. No distress. Musculoskeletal: Left hand: She exhibits tenderness, bony tenderness and swelling. She exhibits normal range of motion, normal two-point discrimination, normal capillary refill, no deformity and no laceration. Normal sensation noted. Normal strength noted. Hands: Full active ROM against resistance. Moderate edema and ecchymosis at PIP and DID, 4 fine puncture wounds with scabbing noted between PIP and DIP. Sensory intact. Cap refill 2 sec. Brachial and radial pulses 2+. Neurological: She is alert and oriented to person, place, and time. Skin: Skin is warm and dry. She is not diaphoretic. BP 142/86 Pulse 80 Temp 36.8 ?C (98.3 ?F) (Tympanic) Resp 18 Wt 92.9 kg (204 lb 12.8 oz) .Patient presents with: left middle finger pain: x 10 days No past medical history on file. No past surgical history on file. ALLERGIES Patient has no active allergies. MEDICATIONS losartan (COZAAR) 25 mg tablet Take 25 mg by mouth once daily. hydrochlorothiazide (HYDRODIURIL, ESIDRIX) 12.5 mg tablet Take 12.5 mg by mouth once daily. BUPROPION HCL ORAL Take 1 tablet by mouth once daily. GABAPENTIN ORAL Take 3 capsules by mouth daily at bedtime. triamcinolone acetonide (KENALOG) 0.5 % cream Apply 1 application to affected area twice daily. For rash/itching. Apply sparingly. Avoid face/skin fold. mupirocin (BACTROBAN) 2 % ointment Apply 1 application to affected area three times daily. diclofenac, EC, (VOLTAREN) 50 mg EC tablet Take 1 tablet by mouth three times daily as needed for up to 7 days. predniSONE (DELTASONE) 20 mg tablet Take 1 tablet by mouth once daily. Take daily with food. No family history on file. Social History Tobacco Use - Smoking status: Former Smoker Types: Cigarettes - Smokeless tobacco: Never Used Substance Use Topics - Alcohol use: Not on file - Drug use: Not on file ASSESSMENT/PLAN: 1. Pain of finger of left hand - ICD9: 729.5, ICD10: M79.645 (primary diagnosis) - DICLOFENAC SODIUM 50 MG TABLET,DELAYED RELEASE 2. Injury of finger of left hand, initial encounter - ICD9: 959.5, ICD10: S69.92XA - XR DIGIT GENERAL 3V FRONTAL/LAT/OBL LT Impression: no acute fracture. Soft tissue swelling. - MUPIROCIN 2 % TOPICAL OINTMENT Encouraged application of heat prn. Elevate prn. Reviewed red flag SANDS secondary skin infection. The patient is instructed to return or seek emergency treatment if symptoms become worse or with any acute change in condition. The patient verbalizes understanding and is in agreement with plan of care. Chely Martinez CNP Normal [facility] PROGRESS HNO ID: [id number] Author: Derek Albert () Crystal Jhaveri Service: ? Author Type: Pressfitter Type: Progress Notes Filed: 11/04/2018 2:49 PM Note Text: Radiology Service Progress Note PATIENT NAME: Shayna Pressley DATE OF SERVICE: November 04, 2018 TIME: 2:44 PM PATIENT IDENTITY VERIFICATION COMPLETED USING TWO (2) METHODS: Patient confirmed name verbally and Date of . PATIENT GENDER DATA: Female. status: : No status: NO. PATIENT RELEVANT IMPLANT DATA REVIEWED: Not Applicable RADIOLOGY DEPARTMENT: General X-ray: Exam(s) Completed: Upper Extremity X-Ray(s): Fingers/Thumb, left : PERIPHERAL IV DATA: Not applicable SIGNED BY: RT Kt November 04, 2018 2:44 PM [facility] XR DIGIT 3V FRONTAL/LAT/OBL LTon 11-04-2018 XR DIGIT 3V FRONTAL/LAT/OBL LT * * *Final Report* * * DATE OF EXAM: Nov 04 2018 2:52PM WOX [id number] - XR DIGIT 3V FRONTAL/LAT/OBL LT / PROCEDURE REASON: Injury of finger of left hand, initial encounter * * * * Physician Interpretation * * * * HISTORY: Injury of finger of left hand, initial encounter TECHNIQUE: 3 views of the left long finger COMPARISON: None. RESULT: There is no acute fracture. Joint spaces are preserved. No obvious focal soft tissue swelling. Mild degenerative change second MCP joint with small osteophytes. IMPRESSION: NO ACUTE BONY ABNORMALITY Lodge Attendant: PEDRO Transcribe Date/Time: Nov 04 2018 2:52P Dictated by : THANIA GALLAGHER MD This examination was interpreted and the report reviewed and electronically signed by: THANIA GALLAGHER MD on Nov 04 2018 2:53PM EST [id number] Normal [facility] Vital Signs Date Time Vital Sign Value Performing Clinician Faci lity 10-22-2024 13:38-0400 Body height 170.2 cm Eloisa Zurita MD Work Phone: [facility] 10-22-2024 13:38-0400 Body mass index (BMI) [Ratio] 27.82 kg/m2 Eloisa Zurita MD Work Phone: [facility] 10-22-2024 13:38-0400 Body weight 80.56 kg Eloisa Zurita MD Work Phone: [facility] 10-22-2024 13:38-0400 Diastolic blood pressure 79 mm[Hg] Eloisa Zurita MD Work Phone: [facility] 10-22-2024 13:38-0400 Heart rate 72 /min Eloisa Zurita MD Work Phone: [facility] 10-22-2024 13:38-0400 Systolic blood pressure 147 mm[Hg] Eloisa Zurita MD Work Phone: [facility] 09-22-2024 11:45-0400 Body height 170.2 cm Eloisa Zurita MD Work Phone: [facility] 09-22-2024 11:45-0400 Body mass index (BMI) [Ratio] 27.47 kg/m2 Eloisa Zurita MD Work Phone: [facility] 09-22-2024 11:45-0400 Body weight 79.56 kg Eloisa Zurita MD Work Phone: [facility] 09-22-2024 11:45-0400 Diastolic blood pressure 77 mm[Hg] Eloisa Zurita MD Work Phone: [facility] 09-22-2024 11:45-0400 Heart rate 64 /min Eloisa Zurita MD Work Phone: [facility] 09-22-2024 11:45-0400 Systolic blood pressure 151 mm[Hg] Eloisa Zurita MD Work Phone: [facility] 08-03-2024 13:32-0400 Body height 170.2 cm Eloisa Zurita MD Work Phone: [facility] 08-03-2024 13:32-0400 Body mass index (BMI) [Ratio] 26.31 kg/m2 Eloisa Zurita MD Work Phone: [facility] 08-03-2024 13:32-0400 Body weight 76.2 kg Eloisa Zurita MD Work Phone: [facility] 08-03-2024 13:32-0400 Diastolic blood pressure 89 mm[Hg] Eloisa Zurita MD Work Phone: [facility] 08-03-2024 13:32-0400 Systolic blood pressure 140 mm[Hg] Eloisa Zurita MD Work Phone: [facility] 08-03-2024 12:56-0400 Heart rate 69 /min Eloisa Zurita MD Work Phone: [facility] 02-03-2024 13:02-0400 Body height 170.2 cm Eloisa Zurita MD Work Phone: [facility] 02-03-2024 13:02-0400 Body mass index (BMI) [Ratio] 26.91 kg/m2 Eloisa Zurita MD Work Phone: [facility] 02-03-2024 13:02-0400 Body weight 77.93 kg Eloisa Zurita MD Work Phone: [facility] 02-03-2024 13:02-0400 Diastolic blood pressure 83 mm[Hg] Eloisa Zurita MD Work Phone: [facility] 02-03-2024 13:02-0400 Heart rate 69 /min Eloisa Zurita MD Work Phone: [facility] 02-03-2024 13:02-0400 Systolic blood pressure 164 mm[Hg] Eloisa Zurita MD Work Phone: [facility] 04-04-2023 12:49-0500 Body height 170.2 cm Eloisa Zurita MD Work Phone: [facility] 04-04-2023 12:49-0500 Body mass index (BMI) [Ratio] 27.66 kg/m2 Eloisa Zurita MD Work Phone: [facility] 04-04-2023 12:49-0500 Body weight 80.11 kg Eloisa Zurita MD Work Phone: [facility] 04-04-2023 12:49-0500 Diastolic blood pressure 80 mm[Hg] Eloisa Zurita MD Work Phone: [facility] 04-04-2023 12:49-0500 Heart rate 65 /min Eloisa Zurita MD Work Phone: [facility] 04-04-2023 12:49-0500 Systolic blood pressure 166 mm[Hg] Eloisa Zurita MD Work Phone: [facility] Encounters Encounter Date Encounter Type Care Provider Facility Start: 10-22-2024 End: 10-22-2024 Office outpatient visit 15 minutes Eloisa Zurita MD Work Phone: [facility] Comment on above: Cerebrovascular dise ase (Primary Dx); Mixed hyperlipidemia; Primary insomnia Start: 10-22-2024 End: 10-22-2024 ambulatory ELOISA ZURITA [facility] Start: 09-24-2024 End: 11-24-2024 Follow-up encounter Eloisa Zurita MD Work Phone: [facility] Comment on above: Lipid panel, Hemoglo bin A1c Start: 09-24-2024 End: 09-24-[address] Mathieu Boateng MD Work Phone: [facility] Work Phone: Start: 09-24-2024 End: 09-24-[address] Eloisa Zurita MD [facility] [place] Work Phone: Start: 09-24-2024 End: 09-24-2024 ambulatory Mathieu Boateng Facility:[facility] Start: 09-22-2024 End: 09-22-2024 Office outpatient visit 25 minutes Eloisa Zurita MD Work Phone: [facility] Comment on above: Cerebrovascular dise ase (Primary Dx); Multiple sclerosis (HCC); Primary insomnia; Essential tremor; Hyperlipidemia, unspecified hyperlipidemia type; Hyperglycemia Start: 09-22-2024 End: 09-22-2024 ambulatory [facility] Start: 09-04-2024 End: 09-04-2024 Subsequent hospital visit by physician Eloisa Zurita MD Work Phone: [facility] Comment on above: Multiple sclerosis ( HCC); Cognitive impairment Start: 09-04-2024 End: 09-04-2024 ambulatory [facility] Start: 08-03-2024 End: 08-03-2024 Office outpatient visit 25 minutes Eloisa Zurita MD Work Phone: [facility] Comment on above: Primary insomnia (Pr imary Dx); Multiple sclerosis (HCC); Cognitive impairment; Headache disorder Start: 08-03-2024 End: 08-03-2024 ambulatory [facility] Start: 02-03-2024 End: 02-03-2024 Office outpatient visit 40 minutes Eloisa Zurita MD Work Phone: [facility] Comment on above: Primary insomnia (Pr imary Dx); Clinically isolated syndrome (CMS/HCC) (HCC); Headache disorder; Essential tremor; Cognitive impairment; Memory loss; Fatigue, unspecified type Start: 02-03-2024 End: 02-03-2024 ambulatory [facility] Start: 11-26-2023 End: 11-26-2023 Telephone encounter Eloisa Zurita MD Work Phone: [facility] Comment on above: Medication Problem Start: 04-04-2023 End: 04-04-2023 Office outpatient visit 15 minutes Eloisa Zurita MD Work Phone: [facility] Comment on above: Clinically isolated syndrome (CMS/HCC) (HCC) (Primary Dx); Sleep-related bruxism; Chronic insomnia; Headache disorder Start: 07-27-2022 Telephone encounter Eloisa yang MD Work Phone: [facility] Comment on above: Med Refill Start: 05-17-2022 Telephone encounter Eloisa yang MD Work Phone: [facility] [place] Comment on above: request Plan of Treatment Date Care Activity Detail Author Start: 02-08-2025 End: 02-08-2025 Patient encounter procedure 02/08/2025 12:40 PM EDT Office Visit [facility] [address] [phone] Eloisa Zurita MD [address] [address] [facility] Start: 12-28-2024 Influenza vaccination [facility] Start: 12-07-2024 End: 10-22-2025 Lipid 1996 panel - Serum or Plasma Lipid panel Lab Routine Mixed hyperlipidemia Expected: 12/07/2024 (Approximate), Expires: 10/22/2025 [facility] Work Phone: Comment on above: Expected: 12/07/2024 (Approximate), Expires: 10/22/2025 Start: 10-22-2024 End: 10-22-2024 Patient encounter procedure 10/22/2024 3:20 PM EDT Office Visit [facility] [address] [phone] Eloisa Zurita MD [address] [address] [facility] Start: 09-22-2024 End: 09-22-2025 Hemoglobin A1c measurement Hemoglobin A1c Lab Routine Cerebrovascular disease Hyperglycemia Expected: 09/22/2024 (Approximate), Expires: 09/22/2025 [facility] Comment on above: Expected: 09/22/2024 (Approximate), Expires: 09/22/2025 Start: 09-22-2024 End: 09-22-2025 Lipid 1996 panel - Serum or Plasma Lipid panel Lab Routine Cerebrovascular disease Hyperlipidemia, unspecified hyperlipidemia type Expected: 09/22/2024 (Approximate), Expires: 09/22/2025 [facility] Work Phone: Comment on above: Expected: 09/22/2024 (Approximate), Expires: 09/22/2025 Start: 09-22-2024 End: 09-22-2024 Patient encounter procedure 09/22/2024 12:00 PM EDT Office Visit [facility] [address] [facility] [address] [place] [phone] Eloisa Zurita MD [address] [facility] [address] [place] [address] [facility] Start: 09-04-2024 End: 09-04-2024 Patient encounter procedure 09/04/2024 1:15 PM EDT Appointment [facility] [address] [place] [id number] Eloisa Zurita MD [address] [address] [facility] Start: 08-03-2024 End: 08-03-2025 Creatinine [Mass/volume] in Serum or Plasma Creatinine, Serum Lab Routine Multiple sclerosis (HCC) Cognitive impairment Expected: 08/03/2024 (Approximate), Expires: 08/03/2025 [facility] Comment on above: Expected: 08/03/2024 (Approximate), Expires: 08/03/2025 Start: 08-03-2024 End: 08-03-2025 MR Brain WO and W contrast IV MR brain w and wo contrast Imaging Routine Multiple sclerosis (HCC) Cognitive impairment Expected: 08/03/2024, Expires: 08/03/2025 [facility] Work Phone: Comment on above: Expected: 08/03/2024 , Expires: 08/03/2025 Start: 08-03-2024 End: 08-03-2024 Patient encounter procedure 08/03/2024 1:00 PM EDT Office Visit [facility] [address] [facility] [address] [place] [phone] Eloisa Zurita MD [address] [facility] [address] [place] [address] [facility] Start: 02-03-2024 End: 02-02-2025 Cobalamin (Vitamin B12) [Mass/volume] in Serum or Plasma Vitamin B12 Lab Routine Cognitive impairment Expected: 02/03/2024 (Approximate), Expires: 02/02/2025 [facility] Comment on above: Expected: 02/03/2024 (Approximate), Expires: 02/02/2025 Start: 02-03-2024 End: 02-02-2025 Thyrotropin [Units/volume] in Serum or Plasma TSH Lab Routine Cognitive impairment Memory loss Fatigue, unspecified type Expected: 02/03/2024 (Approximate), Expires: 02/02/2025 [facility] Comment on above: Expected: 02/03/2024 (Approximate), Expires: 02/02/2025 Start: 02-03-2024 End: 02-02-2025 Vitamin B1 ([facility]) Vitamin B1 ([facility]) Lab Routine Cognitive impairment Expected: 02/03/2024 (Approximate), Expires: 02/02/2025 [facility] Work Phone: Comment on above: Expected: 02/03/2024 (Approximate), Expires: 02/02/2025 Start: 02-03-2024 End: 02-02-2025 Vitamin B6 Vitamin B6 Lab Routine Cognitive impairment Expected: 02/03/2024 (Approximate), Expires: 02/02/2025 [facility] Comment on above: Expected: 02/03/2024 (Approximate), Expires: 02/02/2025 Start: 02-03-2024 End: 02-03-2024 Patient encounter procedure [facility] Start: 12-29-2023 COVID-19 Vaccine ( season) COVID-19 Vaccine ( season) [facility] Start: 12-29-2023 COVID-19 Vaccine ( season) COVID-19 Vaccine ( season) [facility] Start: 12-29-2023 Influenza vaccination Influenza Vacc ine (#1) [facility] Start: 04-04-2023 End: 04-04-2023 Patient encounter procedure 04/04/2023 Office Visit Neurology Eloisa Zurita MD [address] [place] [address] [facility] Start: 12-28-2022 COVID-19 Vaccine ( season) COVID-19 Vaccine ( season) [facility] Start: 12-28-2022 Influenza vaccination Influenza Vacc ine (#1) [facility] Start: 12-28-2021 Influenza vaccination Influenza Vacc ine (#1) [facility] Start: 2021 RSV Immunization for Adults (1 - 1-dose 75+ series) RSV Immunization for Adults (1 - 1-dose 75+ series) [facility] Start: 07-22-2021 DTaP/Tdap/Td Vaccine s (2 - Td or Tdap) DTaP/Tdap/Td Vaccines (2 - Td or Tdap) [facility] Start: 02-07-2021 Pneumococcal Vaccine : 50+ Years (2 of 2 - PPSV23) Pneumococcal Vaccine: 50+ Years (2 of 2 - PPSV23) [facility] Start: 02-07-2021 Pneumococcal Vaccine : 65+ Years (2 - PPSV23 if available, else PCV20) Pneumococcal Vaccine: 65+ Years (2 - PPSV23 if available, else PCV20) [facility] Start: 02-07-2021 Pneumococcal Vaccine : 65+ Years (2 - PPSV23 or PCV20) Pneumococcal Vaccine: 65+ Years (2 - PPSV23 or PCV20) [facility] Start: 02-07-2021 Pneumococcal Vaccine : 65+ Years (2 of 2 - PPSV23 or PCV20) Pneumococcal Vaccine: 65+ Years (2 of 2 - PPSV23 or PCV20) [facility] Start: 09-26-2020 COVID-19 Vaccine (3 - Booster for Moderna series) COVID-19 Vaccine (3 - Booster for Moderna series) [facility] Start: 04-04-2020 Zoster Vaccines (2 o f 2) Zoster Vaccines (2 of 2) [facility] Start: 2006 RSV Immunization age d 60 or older (1 - 1-dose 60+ series) RSV Immunization aged 60 or older (1 - 1-dose 60+ series) [facility] Start: 1996 Screening for malignant neoplasm of lung Lung Cancer Screening [facility] Start: 1964 Hepatitis C screening Hepatitis C Sc reening [facility] Start: 1958 Depression Screening Depression Scre ening [facility] Start: 1945 Hepatitis B Vaccines (1 of 3 - 3-dose series) Hepatitis B Vaccines (1 of 3 - 3-dose series) [facility] Start: 1945 Medicare Annual Wellness (AWV) Medicare Annual Wellness (AWV) [facility] Start: 1945 Screening for malignant neoplasm of colon [facility] Start: 1945 Screening for osteoporosis Bone Density Scan [facility] End: 09-04-2024 MR Brain WO and W contrast IV [facility] Work Phone: Comment on above: Once for 1 Occurrenc es starting 09/04/2024 until 09/04/2024 Immunizations Immunization Date Immunization Notes Care Provider Fa [facility] 02-08-2020 influenza virus vacc ine, unspecified formulation Eloisa Zurita MD Work Phone: [facility] Payers Date Payer Category Payer Self-pay 2021 Medicare supplementa l policy (as second payer) AARP [id number] 2021 Unknown KOLE SHARIF [id number] [id number]-Present [address] [place] [address] Supplement [id number] 2021 Unknown [id number] 2011 Medicare [id number] 2011 Medicare [id number] Unknown ALLEY [id number] Unknown [id number] Social History Date Type Detail Facility Start: 02-03-2024 Tobacco smoking stat [facility] Ex-smoker [facility] Start: 10-16-1968 End: 06-13-2011 History of tobacco use Current smoker [facility] Start: 04-04-2022 End: 09-22-2024 Alcohol intake Current drinker of alcohol (finding) [facility] Start: 1945 Sex Assigned At Female [facility] Start: 04-04-2022 End: 10-22-2024 History of Social function [facility] Start: 04-04-2022 End: 10-22-2024 Tobacco use panel [facility] Start: 03-28-2022 Gender identity Identifies as female gender (finding) [facility] Start: [birth year]-16-1968 End: 06-13-2011 History of tobacco use Cigarette Smoker [facility] Start: 02-03-2024 Tobacco use and exposure Smokeless tobacco non-user [facility] Start: 11-28-2021 Sex Female (finding) [facility] Work Phone: Clinical Notes 05-17-2022 to 10-22-2024 Eloisa Zurita MD - 10/22/2024 1:40 PM EDTTelephone Encounter - Saima MazamartaLisa, ANYA - 09/25/2024 8:27 AM EDTTelephone Encounter - Saima MazamartaLisaANYA - 09/25/2024 8:27 AM EDT Note Date & Type Note Facility 10-22-2024 History of Presen t illness Narrative Images from the original note were not included. [facility] [place] [address] [address] [facility] [address] [facility] [address] Dept: [phone] Dept Loc: [phone] Visit type: Established Patient Reason for Visit: Follow-up and Insomnia Assessment and Plan 1. Cerebrovascular disease - rosuvastatin (Crestor) 20 MG tablet; Take 1 tablet (20 mg) by mouth daily., Starting Alejandrina 10/22/2024, Until Sat10/22/2025, Normal - aspirin 81 MG EC tablet; Take 1 tablet (81 mg) by mouth daily., Starting Alejandrina 10/22/2024, Until Sat10/22/2025, Normal 2. Mixed hyperlipidemia - rosuvastatin (Crestor) 20 MG tablet; Take 1 tablet (20 mg) by mouth daily., Starting Alejandrina 10/22/2024, Until Sat10/22/2025, Normal - Lipid panel 3. Primary insomnia Subjective HPI: She reports that her family has been reporting that she is repeating herself. She reports that the eye doctor thinks the vision changes are from developing cataracts. She is not getting headaches that frequently. She reports taht she has occl headaches that she calls TMJ headaches, but they are infrequent. She reports that the essential tremor is no worse. She reports that she is no longer waking up during sleep. She has been noticing tremor in her head. Her handwriting is awful. There is no worsening of the memory. Ask informant to rate the patient's ability using the following scoring system: Dependent= 3 Requires Assistance= 2 Has difficulty but does by self= 1 Normal= 0 Never did the activity but could do now= 0 Never did and would have difficulty now= 1 Score Writing checks, paying bills, balancing checkbook 0 Assembling tax records, business affairs, or papers 0 Shopping alone for clothes, household necessities or groceries 0 Playing a game of skill, working on a hobby 0 Heating water, making a cup of coffee turning off stove after use 0 Preparing a balanced meal 0 Keeping track of current events 0 Paying attention to, understanding, discussing TV, book, magazine 0 Remembering appointments, family occasions, holidays, medications 0 Traveling out of neighborhood, driving, arranging to take a bus 0 Total Score 0 Evaluation Sum scores (range 0-30). Cut-point of 9 (dependent in 3 or more activities) is recommended to indicate impaired function and possible cognitive impairment. We reviewed that her recent vision changes are primarily in the left eye. It was the right eye that had optic neuritis. REVIEW OF SYSTEMS: Review of Systems Constitutional: Negative for appetite change, chills, diaphoresis, fever and unexpected weight change. HENT: Positive for dental problem. Negative for mouth sores. Eyes: Negative for discharge and itching. Respiratory: Negative for chest tightness. Cardiovascular: Negative for chest pain and leg swelling. Gastrointestinal: Negative for rectal pain and vomiting. Endocrine: Negative for polydipsia, polyphagia and polyuria. Genitourinary: Negative for decreased urine volume, flank pain and genital sores. Musculoskeletal: Negative for arthralgias. Skin: Negative for color change. Allergic/Immunologic: Negative for food allergies and immunocompromised state. Neurological: Positive for headaches. TMJ area headache Hematological: Negative for adenopathy. Does not bruise/bleed easily. Psychiatric/Behavioral: Negative for agitation, behavioral problems, decreased concentration, sleep disturbance and suicidal ideas. Allergies Allergen Reactions Bacitracin-Polymyxin B Belsomra [Suvorexant] Paradoxical insomnia Codeine Other reaction(s): GI Upset Morphine Hives and Itching Sulfa Antibiotics Nausea Only Penicillins Hives, Itching and Rash Current Outpatient Medications: cholecalciferol (Vitamin D-3) 25 MCG (1000 UT) capsule, Take 1 capsule by mouth daily., Disp: , Rfl: gabapentin (Neurontin) 800 MG tablet, Take 4 tablets (3,200 mg) by mouth Nightly., Disp: 360 tablet, Rfl: 3 losartan (Cozaar) 50 MG tablet, Take 50 mg by mouth daily., Disp: , Rfl: sucralfate (Carafate) 1 g tablet, Take 1 g by mouth in the morning and 1 g at noon and 1 g before bedtime., Disp: , Rfl: aspirin 81 MG EC tablet, Take 1 tablet (81 mg) by mouth daily., Disp: 30 tablet, Rfl: 11 rosuvastatin (Crestor) 20 MG tablet, Take 1 tablet (20 mg) by mouth daily., Disp: 30 tablet, Rfl: 2 Past Medical History: Diagnosis Date Hypertension Multiple sclerosis (HCC) Social History Tobacco Use Smoking status: Former Current packs/day: 0.00 Average packs/day: 0.5 packs/day for 41.7 years (20.8 ttl pk-yrs) Types: Cigarettes Start date: 10/16/1969 Quit date: 06/13/2011 Years since quittin.3 Smokeless tobacco: Never Substance Use Topics Alcohol use: Yes Alcohol/week: 7.0 standard drinks of alcohol Types: 7 Glasses of wine per week Past Surgical History: Procedure Laterality Date BREAST SURGERY CHOLECYSTECTOMY HYSTERECTOMY Family History Problem Relation Name Age of Onset Lung cancer Father Objective Vitals: BP (!) 147/79 (BP Location: Right arm, Patient Position: Sitting, BP Cuff Size: Adult) Pulse 72 Ht 5' 7 (1.702 m) Wt 177 lb 9.6 oz (80.6 kg) BMI 27.82 kg/m General Appearance: Patient is in no apparent distress. Head is normocephalic, atraumatic. Cardiovascular: Regular rate and rhythm. No heart murmurs. No carotid bruit Neurologic: Mentation: Alert and oriented to person, place and . Speech and Language: Speech and language normal Concentration and Attention: Concentration normal Memory: Memory 3/3 immed, 2/3 short (got thethird one with a clue) Fund of Knowledge: Fund of knowledge normal Cranial Nerves: II, III, IV, V, , VII, VIII, IX, X, XI, XII examined and were intact. Some head titubation, but otherwise ok. Motor: Strength: Strength 5 out of 5 with normal tone Alternating Movements: Normal Cogwheel Rigidity: None Tone: Tone is normal Tremor / Involuntary Movements: Tiny vertical tremor Deep Tendon Reflexes: 1 out of 4 symmetrical in all four limbs. Coordination: Normal coordination upper and lower extremities Gait and Station: Station is normal. Gait is normal Data Reviewed and Summarized DIAGNOSTIC TESTING TSH: Lab Results Component Value Date TSH 3.35 02/03/2024 VITAMIN B12: VITAMIN B12 Date Value Ref Range Status 02/03/2024 376 200 - 1,100 pg/mL Final Comment: Please Note: Although the reference range for vitamin B12 is 200-1100 pg/mL, it has been reported that between 5 and 10% of patients with values between 200 and 400 pg/mL may experience neuropsychiatric and hematologic abnormalities due to occult B12 deficiency; less than 1% of patients with values above 400 pg/mL will have symptoms. Narrative & Impression Patient Name: SHAYNA PRESSLEY : 1945 [id number] Exam Date/Time: 09/04/2024 13:30 Procedure: MR BRAIN W AND WO CONTRAST Ordering Provider: ZURITA JAMES Reason For Exam: Possible left optic neuritis, new cognitive issues. HISTORY: Possible left optic neuritis, new cognitive issues, history of multiple sclerosis. MR scan of the brain was performed with sagittal and coronal T1 weighted, axial T2 weighted and FLAIR scans, and axial diffusion and susceptibility weighted scans. After intravenous contrast sections are repeated with T1-weighted images with without fat suppression There is mild generalized parenchymal volume loss, with periventricular leukoencephalopathy There are dilated perivascular spaces. There is no evidence of acute infarction, and the diffusion-weighted images are negative. There is no evidence of mass lesion, edema, nor hemorrhage. There is no hydrocephalus, shift, or herniation. No epidural or subdural collections are present. The hypothalamus and pituitary regions are normal. The brain stem, cerebellum, and cranial - cervical junction are normal. The globes and orbital contents are grossly normal with no definite optic nerve abnormal enhancement. There is no significant mucosal thickening in the paranasal sinuses. IMPRESSION: 1.Mild atrophy and periventricular leukoencephalopathy-no areas of abnormal enhancement are seen in the white matter or optic nerves. 2. No evidence of acute infarction or mass or hemorrhage. Report Dictated on Electronically Signed By: Slick Carranza MD Electronically Signed Date/Time: 09/05/2024 4:52 PM EDT LDL 182 IMPRESSION and PLAN: Diagnosis Plan 1. Cerebrovascular disease rosuvastatin (Crestor) 20 MG tablet aspirin 81 MG EC tablet 2. Mixed hyperlipidemia rosuvastatin (Crestor) 20 MG tablet Lipid panel Lipid panel 3. Primary insomnia Reviewing the images, her known history of HTN, her non-HDL cholesterol being elevated, and her elevated triglycerides, I feel that the changes on her MRI brain are primarily atherosclerotic rather than MS.Aspirin 81 mg. Crestor 20 mg. Repeat lipid panel in about 3 months. She is to continue the gabaepentin. Eloisa Zurita MD I spent 20 minutes caring for this patient today, reviewing labs, records, seeing the patient, documenting in the record and arranging for studies. documented in this encounter [facility] 09-25-2024 Telephone encount er Note Labs faxed over to [phone] [facility] 09-25-2024 Miscellaneous Notes Formattin g of this note might be different from the original. Labs faxed over to [phone] documented in this encounter [facility] 09-22-2024 History of Presen t illness Narrative Images from the original note were not included. [facility] [address] [facility] [address] Dept: [phone] Dept Loc: [phone] Visit type: Established Patient Reason for Visit: Follow-up and Insomnia (/) Assessment and Plan 1. Cerebrovascular disease - Lipid panel - Hemoglobin A1c 2. Multiple sclerosis (HCC) 3. Primary insomnia 4. Essential tremor 5. Hyperlipidemia, unspecified hyperlipidemia type - Lipid panel 6. Hyperglycemia - Hemoglobin A1c Subjective HPI: She reports that her family has been reporting that she is repeating herself. She reports that the eye doctor thinks the vision changes are from developing cataracts. She is not getting headaches that frequently. She reports taht she has occl headaches that she calls TMJ headaches, but they are infrequent. She reports that the essential tremor is no worse. She reports that she is no longer waking up during sleep. She has been noticing tremor in her head. Her handwriting is awful. There is no worsening of the memory. Ask informant to rate the patient's ability using the following scoring system: Dependent= 3 Requires Assistance= 2 Has difficulty but does by self= 1 Normal= 0 Never did the activity but could do now= 0 Never did and would have difficulty now= 1 Score Writing checks, paying bills, balancing checkbook 0 Assembling tax records, business affairs, or papers 0 Shopping alone for clothes, household necessities or groceries 0 Playing a game of skill, working on a hobby 0 Heating water, making a cup of coffee turning off stove after use 0 Preparing a balanced meal 0 Keeping track of current events 0 Paying attention to, understanding, discussing TV, book, magazine 0 Remembering appointments, family occasions, holidays, medications 0 Traveling out of neighborhood, driving, arranging to take a bus 0 Total Score 0 Evaluation Sum scores (range 0-30). Cut-point of 9 (dependent in 3 or more activities) is recommended to indicate impaired function and possible cognitive impairment. We reviewed that her recent vision changes are primarily in the left eye. It was the right eye that had optic neuritis. REVIEW OF SYSTEMS: Review of Systems Constitutional: Negative for appetite change, chills, diaphoresis, fever and unexpected weight change. HENT: Negative for dental problem and mouth sores. Eyes: Negative for discharge and itching. Respiratory: Negative for chest tightness. Cardiovascular: Negative for chest pain and leg swelling. Gastrointestinal: Negative for rectal pain and vomiting. Endocrine: Negative for polydipsia, polyphagia and polyuria. Genitourinary: Negative for decreased urine volume, flank pain and genital sores. Musculoskeletal: Negative for arthralgias. Skin: Negative for color change. Allergic/Immunologic: Negative for food allergies and immunocompromised state. Neurological: Positive for headaches. TMJ area headache Hematological: Negative for adenopathy. Does not bruise/bleed easily. Psychiatric/Behavioral: Negative for agitation, behavioral problems, decreased concentration, sleep disturbance and suicidal ideas. Allergies Allergen Reactions Bacitracin-Polymyxin B Belsomra [Suvorexant] Paradoxical insomnia Codeine Other reaction(s): GI Upset Morphine Hives and Itching Sulfa Antibiotics Nausea Only Penicillins Hives, Itching and Rash Current Outpatient Medications: cholecalciferol (Vitamin D-3) 25 MCG (1000 UT) capsule, Take 1 capsule by mouth daily., Disp: , Rfl: gabapentin (Neurontin) 800 MG tablet, Take 4 tablets (3,200 mg) by mouth Nightly., Disp: 360 tablet, Rfl: 3 losartan (Cozaar) 50 MG tablet, Take 50 mg by mouth daily., Disp: , Rfl: sucralfate (Carafate) 1 g tablet, Take 1 g by mouth in the morning and 1 g at noon and 1 g before bedtime., Disp: , Rfl: Past Medical History: Diagnosis Date Hypertension Multiple sclerosis (HCC) Social History Tobacco Use Smoking status: Former Current packs/day: 0.00 Average packs/day: 0.5 packs/day for 41.7 years (20.8 ttl pk-yrs) Types: Cigarettes Start date: 10/16/1969 Quit date: 06/13/2011 Years since quittin.2 Smokeless tobacco: Never Substance Use Topics Alcohol use: Yes Alcohol/week: 7.0 standard drinks of alcohol Types: 7 Glasses of wine per week Past Surgical History: Procedure Laterality Date BREAST SURGERY CHOLECYSTECTOMY HYSTERECTOMY Family History Problem Relation Name Age of Onset Lung cancer Father Objective Vitals: BP (!) 151/77 (BP Location: Right arm, Patient Position: Sitting, BP Cuff Size: Adult) Pulse 64 Ht 5' 7 (1.702 m) Wt 175 lb 6.4 oz (79.6 kg) BMI 27.47 kg/m General Appearance: Patient is in no apparent distress. Head is normocephalic, atraumatic. Cardiovascular: Regular rate and rhythm. No heart murmurs. No carotid bruit Neurologic: Mentation: Alert and oriented to person, place and . Speech and Language: Speech and language normal Concentration and Attention: Concentration normal Memory: Memory 3/3 immed, 2/3 short (got thethird one with a clue) Fund of Knowledge: Fund of knowledge normal Cranial Nerves: II, III, IV, V, , VII, VIII, IX, X, XI, XII examined and were intact. Some head titubation, but otherwise ok. Motor: Strength: Strength 5 out of 5 with normal tone Alternating Movements: Normal Cogwheel Rigidity: None Tone: Tone is normal Tremor / Involuntary Movements: Tiny vertical tremor Deep Tendon Reflexes: 1 out of 4 symmetrical in all four limbs. Coordination: Normal coordination upper and lower extremities Gait and Station: Station is normal. Gait is normal Data Reviewed and Summarized DIAGNOSTIC TESTING TSH: Lab Results Component Value Date TSH 3.35 02/03/2024 VITAMIN B12: VITAMIN B12 Date Value Ref Range Status 02/03/2024 376 200 - 1,100 pg/mL Final Comment: Please Note: Although the reference range for vitamin B12 is 200-1100 pg/mL, it has been reported that between 5 and 10% of patients with values between 200 and 400 pg/mL may experience neuropsychiatric and hematologic abnormalities due to occult B12 deficiency; less than 1% of patients with values above 400 pg/mL will have symptoms. Narrative & Impression Patient Name: SHAYNA PRESSLEY : 1945 [place] [id number] Exam Date/Time: 09/04/2024 13:30 Procedure: MR BRAIN W AND WO CONTRAST Ordering Provider: ZURITA JAMES Reason For Exam: Possible left optic neuritis, new cognitive issues. HISTORY: Possible left optic neuritis, new cognitive issues, history of multiple sclerosis. MR scan of the brain was performed with sagittal and coronal T1 weighted, axial T2 weighted and FLAIR scans, and axial diffusion and susceptibility weighted scans. After intravenous contrast sections are repeated with T1-weighted images with without fat suppression There is mild generalized parenchymal volume loss, with periventricular leukoencephalopathy There are dilated perivascular spaces. There is no evidence of acute infarction, and the diffusion-weighted images are negative. There is no evidence of mass lesion, edema, nor hemorrhage. There is no hydrocephalus, shift, or herniation. No epidural or subdural collections are present. The hypothalamus and pituitary regions are normal. The brain stem, cerebellum, and cranial - cervical junction are normal. The globes and orbital contents are grossly normal with no definite optic nerve abnormal enhancement. There is no significant mucosal thickening in the paranasal sinuses. IMPRESSION: 1.Mild atrophy and periventricular leukoencephalopathy-no areas of abnormal enhancement are seen in the white matter or optic nerves. 2. No evidence of acute infarction or mass or hemorrhage. Report Dictated on Electronically Signed By: Slick Carranza MD Electronically Signed Date/Time: 09/05/2024 4:52 PM EDT IMPRESSION and PLAN: Diagnosis Plan 1. Cerebrovascular disease Lipid panel Hemoglobin A1c Lipid panel Hemoglobin A1c 2. Multiple sclerosis (HCC) 3. Primary insomnia 4. Essential tremor 5. Hyperlipidemia, unspecified hyperlipidemia type Lipid panel Lipid panel 6. Hyperglycemia Hemoglobin A1c Hemoglobin A1c It is imperative that we determine whether the white matter disease on the latest MRI is from cerebrovascular disease or multiple sclerosis. If it is the latter, then it has to be treated with a DMT. She did not do well on the DMT's that were available in 2004. My bet is that we will end up trying something along the lines of Gilenya, Tecfidera or similar as she did not tolerate injections. Lipid panel and A1C check. Gabapentin for the insomnia is working. We are holding off on treating the ET. Eloisa Zurita MD I spent 20 minutes caring for this patient today, reviewing labs, records, seeing the patient, documenting in the record and arranging for studies. Medication Options for MS First of all, these are not cures, but they do prevent progression of disease. SELF INJECTIONS INTERFERONS: Medications in this category include: Avonex (1X/week, but given in muscle) Betaseron/Extavia (every other day under the skin) Rebif (every Mon, Wed, Fri given under the skin) Plegridy (once every two weeks, given under skin) Monitoring for these meds includes blood tests every 3 to 6 months initially, then annually complete blood cell count liver function thyroid function High likelihood for undesirable side effects injection site reactions flulike symptoms, including myalgia, fevers, chills, and fatigue techniques to prevent or mitigate these symptoms include cold compresses and premedication with nonsteroidal anti-inflammatory drugs. Glatiramer Acetate/Copaxone Generic is Glatopa, brand is Copaxone Come as daily shots (original version) and every MWF shots version Side effects do occur, but not frequently injection site reactions occasionally postinjection reaction involving flushing, anxiety, shortness of breath, and rapid heartbeat, which generally subsides within 30 minutes. in my experience, this goes away after a couple of injections on the rare occasion that it occurs Kesimpta: Shots are given in skin once a week for the first 4 weeks, then once a month after that. Better than Aubagio (see below) in trials Adverse reactions: Upper respiratory tract infection, with symptoms such as sore throat and runny nose, and headache. Headache Injection site reactions Concern for harm, so should be avoided It could reactivate hepatitis B and may make a person vulnerable to infection by the JOSIE Virus (a condition called PML) Although no cases of PML have been reported for KESIMPTA in the [facility] clinical studies, PML resulting in has occurred in patients being treated with ofatumumab for CLL (a form of cancer). Monitoring: Blood work for Hepatitis B must be performed before the first dose because of concern for reactivation of hidden Hep B. Depending on the situation, the neurologist may check for JOSIE Virus antibody levels or may check cell count. PILLS Gilenya (fingolimod): One capsule daily Patients have to take the first dose in a monitored situation because of the risk of slower heart rate. ECG before the first dose to check for abnormalities 6 hour monitoring is required on the first dose in a medical facility with ECG at the beginning and again 6 hours later Other issues: 0.5% of patients in the studies had a swelling of the back of the eye called macular edema, so an eye doctor has to examine the eye before treatment and 3 to 4 months after treatment initiation diabetes mellitus or uveitis substantially increases the risk of macular edema, so make sure to tell the neurologist if you have a history of these conditions Although not required, some neurologists recommend regular dermatology visits because of reports of increased risk of skin cancers, including basal cell carcinoma and melanoma. If you have pre-existing lung conditions (asthma, COPD, etc.), you may need to be checked out by a lung doctor before and during treatment because of reports of occasional reductions in lung function. Fingolimod increases the risk for certain infections PML, an opportunistic infection of the brain caused by the JOSIE virus, has occurred in 20 patients Blood testing for JOSIE virus antibodies is performed before starting this med now PML risk is greater with older age and the longer a patient is on the treatment Shingles virus and its cousin herpes simplex was reported to become active during the trials of the medicine Patients have to have a blood test for antibodies to shingles, and if they do not have those anitbodies, the patients have to have a shingles vaccine before getting the first dose Monitoring Before starting the med Blood tests: complete blood cell count, liver function tests, varicella-zoster (shingles) virus IgG, and JOSIE Virus antibody testing (not required, but often done). Eye exam with an eye doctor to ensure no macular edema First dose 6-hour monitoring for slow heart rate After the first dose Eye exam with an eye doctor 3 months after initial dose complete blood cell count and liver function tests every 3 to 6 months thereafter Aubagio. Aubagio 7 mg or 14 mg 2 times a day reduces the chance of further disease activity in patients with clinically isolated syndrome or relapsing-remitting MS and reduces accumulation of disability. Adverse reactions Common adverse events include hair thinning, headache, nausea, and diarrhea. Peripheral neuropathy Increased blood pressure A single case of PML has been reported in a patient previously treated with natalizumab for more than 2 years, with a high JOSIE virus antibody test result Asymptomatic liver enzyme elevations were common in the clinical trials. Rare, hypersensitivity reactions, including anaphylaxis, angioedema, and serious skin conditions have been reported Teratogenicity (organ malformation) has been seen in animals that have gotten Aubagio, so is discouraged for both men and women, and since the med lasts in the body for months even after it is stopped, the prevention of is many months in duration Monitoring Before starting treatment, skin or blood test for tuberculosis Blood tests of liver function tests should be performed at baseline and monthly for the first 6 months. Tecfidera. Tecfidera 240 mg 2 times a day reduces disease activity in relapsing-remitting MS Disability was reduced in two studies Adverse reactions Common adverse effects include flushing, abdominal pain, nausea, and diarrhea. Symptoms are reduced if taken with food Suppression can lead to opportunistic infection, herpes zoster activation, and disseminated viral infections. Leukopenia (lowered white blood cell count) There have been cases of PML (JOSIE Virus infection of the brain) associated with this leukopenia Monitoring Blood tests to monitor white blood cell count are done routinely If the medication has to be stopped because of leukopenia, then the cell counts still have to be checked for months later until they recover to normal levels. A newer version Vumerity (diroximel fumarate) is available as well. It has similar risk factors. It should not be taken with a high calorie meal or alcohol, however. Intravenous (IV) Infusion Tysabri: Very effective, once monthly IV infusions. Adverse reactions The most serious adverse effect of natalizumab is progressive multifocal leukoencephalopathy (PML), which is an infection of the brain by the JOSIE virus. Other infections that could potentially occur include: herpes simplex types 1 and 2, shingles, and fungal infections (usually lung infections) There is concern that it may make patients more vulnerable to melanoma (skin cancer) and primary DISPATCH ASSOCIATE lymphoma Monitoring Before starting natalizumab, obtain liver function tests, a JOSIE virus antibody index, and a brain MRI (for comparison if new PML symptoms develop). During treatment, obtain a JOSIE virus antibody index every 6 months. Every 3 months, there is a cell count and liver function testing MRI brain is usually performed every 6 months to check for signs of PML Ocrevus: Strong Q6 month IV infusions. Adverse reactions Common adverse effects of ocrelizumab are listed in table 6-8. Infusion reactions, seen in 34% to 40%, are primarily B-cell lysis syndromes with flushing and throat irritation.. Infections can occur if white blood cell counts get too low or if certain immune system proteins get too low (hypogammablobinemia). Herpes infections are more common with ocrelizumab compared to interferon, including varicella-zoster (2.1 versus 1.0%), oral herpes (3.0 versus 2.2%), and genital herpes (0.1 versus 0%). Lung infections are modestly higher PML and reactivation of hepatitis B are listed as risks with ocrelizumab, but no cases have been seen to date. Cancer risk The risk of all malignancies was 1.3% with ocrelizumab, 0.24% with interferon, and 0.8% with placebo. Breast cancer occurred in 6 of 781 women compared to none with placebo. However, this number is well within the expected rate for age-matched women, and zero is lower than expected. Postmarketing breast cancer rates have remained stable and within the expected range. Monitoring Blood test for hepatitis B Although not required, sometimes we obtain tests for shingles antibodies. Cell count and liver functions are often obtained at the time of the infusions. MS meds and : MS meds in women of child bearing age The September 2018 version of the [employer] Contin[employer] (Multiple Sclerosis and other DISPATCH ASSOCIATE Inflammatory Diseases) was heavily used for this document, but other sources were used as well. documented in this encounter [facility] 08-03-2024 History of Presen t illness Narrative Images from the original note were not included. [facility] [place] [address] [place] [address] [facility] [address] Dept: [phone] Dept Loc: [phone] Visit type: Established Patient Reason for Visit: Follow-up, Sleeping Problem, Med Management, and Tremors Assessment and Plan 1. Primary insomnia 2. Multiple sclerosis (HCC) - MR brain w and wo contrast - Creatinine, Serum 3. Cognitive impairment - MR brain w and wo contrast - Creatinine, Serum Subjective HPI: She reports that her family reports that she is repeating herself. She reports that she was feeling that her vision was blurred. She decided that it was the propranolol. She stopped the medication. She reports that she had many side effects. She still has some blurry vision but it is a bit better with the propranolol. She is not getting headaches that frequently. She reports taht she has occl headaches that she calls TMJ headaches, but they are infrequent. She reports that she is waking up during sleep. She is waking up at 5 AM for no apparent cause. She thinks that the propranlol is the difference. She is able to get back to sleep. She has been noticing tremor in her head. Her handwriting is awful. Ask informant to rate the patient's ability using the following scoring system: Dependent= 3 Requires Assistance= 2 Has difficulty but does by self= 1 Normal= 0 Never did the activity but could do now= 0 Never did and would have difficulty now= 1 Score Writing checks, paying bills, balancing checkbook 0 Assembling tax records, business affairs, or papers 0 Shopping alone for clothes, household necessities or groceries 0 Playing a game of skill, working on a hobby 0 Heating water, making a cup of coffee turning off stove after use 0 Preparing a balanced meal 0 Keeping track of current events 0 Paying attention to, understanding, discussing TV, book, magazine 0 Remembering appointments, family occasions, holidays, medications 0 Traveling out of neighborhood, driving, arranging to take a bus 0 Total Score 0 Evaluation Sum scores (range 0-30). Cut-point of 9 (dependent in 3 or more activities) is recommended to indicate impaired function and possible cognitive impairment. We reviewed that her recent vision changes are primarily in the left eye. It was the right eye that had optic neuritis. REVIEW OF SYSTEMS: Review of Systems Constitutional: Negative for appetite change, chills, diaphoresis, fever and unexpected weight change. HENT: Negative for dental problem and mouth sores. Eyes: Negative for discharge and itching. Respiratory: Negative for chest tightness. Cardiovascular: Negative for chest pain and leg swelling. Gastrointestinal: Negative for rectal pain and vomiting. Endocrine: Negative for polydipsia, polyphagia and polyuria. Genitourinary: Negative for decreased urine volume, flank pain and genital sores. Musculoskeletal: Negative for arthralgias. Skin: Negative for color change. Allergic/Immunologic: Negative for food allergies and immunocompromised state. Neurological: Positive for headaches. TMJ area headache Hematological: Negative for adenopathy. Does not bruise/bleed easily. Psychiatric/Behavioral: Negative for agitation, behavioral problems, decreased concentration, sleep disturbance and suicidal ideas. Allergies Allergen Reactions Bacitracin-Polymyxin B Belsomra [Suvorexant] Paradoxical insomnia Codeine Other reaction(s): GI Upset Morphine Hives and Itching Sulfa Antibiotics Nausea Only Penicillins Hives, Itching and Rash Current Outpatient Medications: cholecalciferol (Vitamin D-3) 25 MCG (1000 UT) capsule, Take 1 capsule by mouth daily., Disp: , Rfl: gabapentin (Neurontin) 800 MG tablet, Take 4 tablets (3,200 mg) by mouth Nightly., Disp: 360 tablet, Rfl: 3 losartan (Cozaar) 50 MG tablet, Take 50 mg by mouth daily., Disp: , Rfl: sucralfate (Carafate) 1 g tablet, Take 1 g by mouth in the morning and 1 g at noon and 1 g before bedtime., Disp: , Rfl: buPROPion SR (Wellbutrin SR) 150 MG 12 hr tablet, Take 150 mg by mouth daily., Disp: , Rfl: buPROPion XL (Wellbutrin XL) 150 MG 24 hr tablet, Take 1 tablet (150 mg) by mouth daily. Do not crush, chew, or split. (Patient not taking: Reported on 04/04/2023), Disp: 30 tablet, Rfl: 11 propranolol (Inderal) 20 MG tablet, Take 1 tablet (20 mg) by mouth 2 times daily. (Patient not taking: Reported on 08/03/2024), Disp: 60 tablet, Rfl: 11 Past Medical History: Diagnosis Date Hypertension Multiple sclerosis (HCC) Social History Tobacco Use Smoking status: Former Current packs/day: 0.00 Average packs/day: 0.5 packs/day for 41.7 years (20.8 ttl pk-yrs) Types: Cigarettes Start date: 10/16/1969 Quit date: 06/13/2011 Years since quittin.1 Smokeless tobacco: Never Substance Use Topics Alcohol use: Yes Alcohol/week: 7.0 standard drinks of alcohol Types: 7 Glasses of wine per week Past Surgical History: Procedure Laterality Date BREAST SURGERY CHOLECYSTECTOMY HYSTERECTOMY Family History Problem Relation Name Age of Onset Lung cancer Father Objective Vitals: BP (S) (!) 149/91 (BP Location: Left arm, Patient Position: Sitting, BP Cuff Size: Adult) Pulse 69 Ht 5' 7 (1.702 m) Wt 168 lb 3.2 oz (76.3 kg) BMI 26.34 kg/m General Appearance: Patient is in no apparent distress. Head is normocephalic, atraumatic. Cardiovascular: Regular rate and rhythm. No heart murmurs. No carotid bruit Neurologic:MMSE 28/30 Mentation: Alert and oriented x 3 to person, place and time. Speech and Language: Speech and language normal Concentration and Attention: Concentration normal Memory: Memory 3/3 immed, 1/3 short Fund of Knowledge: Fund of knowledge normal Cranial Nerves: II, III, IV, V, , VII, VIII, IX, X, XI, XII examined and were intact. Some head titubation. Her pupils are small at baseline and it is difficult to distinguish a difference with light. Motor: Strength: Strength 5 out of 5 with normal tone Alternating Movements: Normal Cogwheel Rigidity: None Tone: Tone is normal Tremor / Involuntary Movements: Tiny vertical tremor Deep Tendon Reflexes: 1 out of 4 symmetrical in all four limbs. Coordination: Normal coordination upper and lower extremities Gait and Station: Station is normal. Gait is normal Data Reviewed and Summarized DIAGNOSTIC TESTING TSH: Lab Results Component Value Date TSH 3.35 02/03/2024 VITAMIN B12: VITAMIN B12 Date Value Ref Range Status 02/03/2024 376 200 - 1,100 pg/mL Final Comment: Please Note: Although the reference range for vitamin B12 is 200-1100 pg/mL, it has been reported that between 5 and 10% of patients with values between 200 and 400 pg/mL may experience neuropsychiatric and hematologic abnormalities due to occult B12 deficiency; less than 1% of patients with values above 400 pg/mL will have symptoms. IMPRESSION and PLAN: Diagnosis Plan 1. Primary insomnia 2. Multiple sclerosis (HCC) MR brain w and wo contrast Creatinine, Serum Creatinine, Serum 3. Cognitive impairment MR brain w and wo contrast Creatinine, Serum Creatinine, Serum She is doing well on the gabapentin and she is taking supplemental melatonin and 5HTP. I did not advise her to take the supplements, but I did not stop it today. She has not had MS issues for a very long time, but now she has vision loss in left eye -- she had right optic neuritis in the past -- and cognitive complaints. Will get MRI brain with and without to see if she has had progression of what seemed to be dormant MS. MRI brain. Normal on today's exam and January exam, but has MS history, so it is necessary to get MRI brain. Eloisa Zurita MD I spent 30 minutes caring for this patient today, reviewing labs, records, seeing the patient, documenting in the record and arranging for studies. documented in this encounter [facility] 02-03-2024 History of Presen t illness Narrative Images from the original note were not included. [facility] [address] [facility] [address] Dept: [phone] Dept Loc: [phone] Visit type: Established Patient Reason for Visit: Follow-up and Sleeping Problem Assessment and Plan 1. Primary insomnia - gabapentin (Neurontin) 800 MG tablet; Take 4 tablets (3,200 mg) by mouth Nightly., Starting 02/03/2024, Until 05/03/2024, Normal 2. Clinically isolated syndrome (CMS/HCC) (HCC) 3. Headache disorder - gabapentin (Neurontin) 800 MG tablet; Take 4 tablets (3,200 mg) by mouth Nightly., Starting Sat02/03/2024, Until Sat05/03/2024, Normal - qvnpadohcd-lkwgllsymcvfk-dcdelsge 50-325-40 MG tablet; take 1 tablet by mouth every 2 hours if needed for migraines - MAX OF 4 IN 24 HOURS, Normal 4. Essential tremor - propranolol (Inderal) 20 MG tablet; Take 1 tablet (20 mg) by mouth 2 times daily., Starting Sat02/03/2024, Until Sat02/02/2025, Normal 5. Cognitive impairment - Vitamin B1 ([facility]) - Vitamin B12 - Vitamin B6 - TSH 6. Memory loss - TSH 7. Fatigue, unspecified type - TSH Subjective HPI: She reports that she is having GERD from umbilical hernia. She is not getting headaches that frequently. She reports that she occl takes the butalbital but it is very infrequent. She denies sensory loss, weakness, vision loss to suggest an MS attack. She reports that she is sleeping well, but is adding OTC sleeep aide to my meds. She is having trouble with forgetting what she is doing in the midst of doing it. She has been noticing tremor in her head. Her handwriting is awful. Ask informant to rate the patient's ability using the following scoring system: Dependent= 3 Requires Assistance= 2 Has difficulty but does by self= 1 Normal= 0 Never did the activity but could do now= 0 Never did and would have difficulty now= 1 Score Writing checks, paying bills, balancing checkbook 0 Assembling tax records, business affairs, or papers 0 Shopping alone for clothes, household necessities or groceries 0 Playing a game of skill, working on a hobby 0 Heating water, making a cup of coffee turning off stove after use 0 Preparing a balanced meal 0 Keeping track of current events 0 Paying attention to, understanding, discussing TV, book, magazine 0 Remembering appointments, family occasions, holidays, medications 0 Traveling out of neighborhood, driving, arranging to take a bus 0 Total Score 0 Evaluation Sum scores (range 0-30). Cut-point of 9 (dependent in 3 or more activities) is recommended to indicate impaired function and possible cognitive impairment. REVIEW OF SYSTEMS: Review of Systems Constitutional: Negative for appetite change, chills, diaphoresis, fever and unexpected weight change. HENT: Negative for dental problem and mouth sores. Eyes: Negative for discharge and itching. Respiratory: Negative for chest tightness. Cardiovascular: Negative for chest pain and leg swelling. Gastrointestinal: Negative for rectal pain and vomiting. Endocrine: Negative for polydipsia, polyphagia and polyuria. Genitourinary: Negative for decreased urine volume, flank pain and genital sores. Musculoskeletal: Negative for arthralgias. Skin: Negative for color change. Allergic/Immunologic: Negative for food allergies and immunocompromised state. Neurological: Positive for headaches. TMJ area headache Hematological: Negative for adenopathy. Does not bruise/bleed easily. Psychiatric/Behavioral: Negative for agitation, behavioral problems, decreased concentration, sleep disturbance and suicidal ideas. Allergies Allergen Reactions Bacitracin-Polymyxin B Belsomra [Suvorexant] Paradoxical insomnia Codeine Other reaction(s): GI Upset Morphine Hives and Itching Sulfa Antibiotics Nausea Only Penicillins Hives, Itching and Rash Current Outpatient Medications: cholecalciferol (Vitamin D-3) 25 MCG (1000 UT) capsule, Take 1 capsule by mouth daily., Disp: , Rfl: losartan (Cozaar) 50 MG tablet, Take 50 mg by mouth daily., Disp: , Rfl: sucralfate (Carafate) 1 g tablet, Take 1 g by mouth in the morning and 1 g at noon and 1 g before bedtime., Disp: , Rfl: buPROPion SR (Wellbutrin SR) 150 MG 12 hr tablet, Take 150 mg by mouth daily., Disp: , Rfl: buPROPion XL (Wellbutrin XL) 150 MG 24 hr tablet, Take 1 tablet (150 mg) by mouth daily. Do not crush, chew, or split. (Patient not taking: Reported on 04/04/2023), Disp: 30 tablet, Rfl: 11 yuahurubqz-ogligzdydrdbt-wsyuhadc 50-325-40 MG tablet, take 1 tablet by mouth every 2 hours if needed for migraines - MAX OF 4 IN 24 HOURS, Disp: 30 tablet, Rfl: 3 gabapentin (Neurontin) 800 MG tablet, Take 4 tablets (3,200 mg) by mouth Nightly., Disp: 360 tablet, Rfl: 3 propranolol (Inderal) 20 MG tablet, Take 1 tablet (20 mg) by mouth 2 times daily., Disp: 60 tablet, Rfl: 11 Past Medical History: Diagnosis Date Hypertension Multiple sclerosis (HCC) Social History Tobacco Use Smoking status: Former Current packs/day: 0.00 Average packs/day: 0.5 packs/day for 41.7 years (20.8 ttl pk-yrs) Types: Cigarettes Start date: 10/16/1969 Quit date: 06/13/2011 Years since quittin.6 Smokeless tobacco: Never Substance Use Topics Alcohol use: Yes Alcohol/week: 7.0 standard drinks of alcohol Types: 7 Glasses of wine per week Past Surgical History: Procedure Laterality Date BREAST SURGERY CHOLECYSTECTOMY HYSTERECTOMY Family History Problem Relation Name Age of Onset Lung cancer Father Objective Vitals: BP (!) 164/83 (BP Location: Right arm, Patient Position: Sitting, BP Cuff Size: Adult) Pulse 69 Ht 5' 7 (1.702 m) Wt 171 lb 12.8 oz (77.9 kg) BMI 26.91 kg/m General Appearance: Patient is in no apparent distress. Head is normocephalic, atraumatic. Cardiovascular: Regular rate and rhythm. No heart murmurs. No carotid bruit Neurologic:MOCA-b Mentation: Alert and oriented x 3 to person, place and time. Speech and Language: Speech and language normal Concentration and Attention: Concentration normal Memory: Memory 4/5 immed, 3/5 delayed Fund of Knowledge: Fund of knowledge normal Cranial Nerves: II, III, IV, V, , VII, VIII, IX, X, XI, XII examined and were intact. Prominent head titubation. Motor: Strength: Strength 5 out of 5 with normal tone Alternating Movements: Normal Cogwheel Rigidity: None Tone: Tone is normal Tremor / Involuntary Movements: Tiny vertical tremor Deep Tendon Reflexes: 1 out of 4 symmetrical in all four limbs. Coordination: Normal coordination upper and lower extremities Gait and Station: Station is normal. Gait is normal Data Reviewed and Summarized DIAGNOSTIC TESTING CBC: No results found for: WBC, RBC, HGB, HCT, MCV, MCH, MCHC, RDW, PLT, MPV CMP: No results found for: NA, K, CL, CO2, BUN, CREATININE, AGRATIO, LABGLOM, GLUCOSE, GLU, PROT, CALCIUM, BILITOT, ALKPHOS, AST, ALT BMP: No results found for: NA, K, CL, CO2, BUN, CREATININE, CALCIUM, LABGLOM, GLUCOSE, GLU PT/INR: No results found for: PROTIME, INR PTT: No results found for: APTT, PTT[APTT} FLP: No results found for: CHLPL, TRIG, HDL, LDLCALC, LDLDIRECT TSH: No results found for: TSH VITAMIN B12: No results found for: [id number] No results found for: PHENYTOIN, PHENOBARB, VALPROATE, CBMZ No components found for: TOPIRA @RESULTINGLABINFO@ No results found for: LEVETIRACETA, FERRITIN, CRP, SEB, ANCA No results found for: ANJEL, IMMUNOGLOBUL, OLIGOBANDS No results found for: QCO55LO, HEPCAB No results found for: CRP, ANATITER, ANCA FERRITIN: No results found for: FERRITIN ---- No image results found. IMPRESSION and PLAN: Diagnosis Plan 1. Primary insomnia gabapentin (Neurontin) 800 MG tablet 2. Clinically isolated syndrome (CMS/HCC) (HCC) 3. Headache disorder gabapentin (Neurontin) 800 MG tablet rucelhmbvz-iymvyelgomomx-eqvybmsg 50-325-40 MG tablet 4. Essential tremor propranolol (Inderal) 20 MG tablet 5. Cognitive impairment Vitamin B1 ([facility]) Vitamin B12 Vitamin B6 Vitamin B1 ([facility]) Vitamin B12 Vitamin B6 TSH TSH 6. Memory loss TSH TSH 7. Fatigue, unspecified type TSH TSH She is doing fine with gabapentin at night. Will continue. She has not had another MS attack since the one years ago. Will follow. Occl Fioricet helps as well as sleep at night. Propranolol 20 mg BID. May help headaches as well. Labs for common causes of memory loss. Eloisa Zurita MD I spent 40 minutes caring for this patient today, reviewing labs, records, seeing the patient, documenting in the record and arranging for studies. documented in this encounter [facility] 11-27-2023 Telephone encount er Note Images from the original note were not included. Call to [facility]. Spoke with Pharmacist Be. Be given a verbal order. Xenmeugcjp-reedrhhqbgbfg-snoggule 50-325-40 mg. Take 1 tablet by mouth every 2 hours if needed for migraine-Max of 4 in 24 hours. Quantity: 30 Refills: 1 Pharmacist repeated back and verbalized understanding. Please see below. imaqrjbgoh-xdzwuwsjadkig-zutuxfsm 50-325-40 MG tablet [[id number]] Order Details Dose, Route, Frequency: As Directed Dispense Quantity: 30 tablet Refills: 1 Sig: take 1 tablet by mouth every 2 hours if needed for migraines - MAX OF 4 IN 24 HOURS Start Date: 11/26/23 End Date: 12/26/23 Written Date: 11/26/23 Rx Expiration Date: 11/25/24 Associated Diagnoses: Headache disorder [R51.9] Original Order: gqplgsvqve-vexetlosbniiv-klshptnl 50-325-40 MG tablet [[id number]] Providers Ordering and Authorizing Provider: Eloisa Zurita MD MELVIN #: [id number] Ordering User: Eloisa Zurita MD Pharmacy [address] [address] MELVIN #: -- [facility] 11-27-2023 Miscellaneous Notes Formattin g of this note is different from the original. Images from the original note were not included. Call to [facility]. Spoke with Pharmacist Be. Be given a verbal order. Zwmwksxrev-nojctqiisijof-kryumoul 50-325-40 mg. Take 1 tablet by mouth every 2 hours if needed for migraine-Max of 4 in 24 hours. Quantity: 30 Refills: 1 Pharmacist repeated back and verbalized understanding. Please see below. ysdpalyyqj-ckcsktogmfnxh-megvmyvg 50-325-40 MG tablet [[id number]] Order Details Dose, Route, Frequency: As Directed Dispense Quantity: 30 tablet Refills: 1 Sig: take 1 tablet by mouth every 2 hours if needed for migraines - MAX OF 4 IN 24 HOURS Start Date: 11/26/23 End Date: 12/26/23 Written Date: 11/26/23 Rx Expiration Date: 11/25/24 Associated Diagnoses: Headache disorder [R51.9] Original Order: jqhvtibmss-nhxkhfasxzrbf-akedmwjp 50-325-40 MG tablet [[id number]] Providers Ordering and Authorizing Provider: Eloisa Zurita MD MELVIN #: [id number] Ordering User: Eloisa Zurita MD Pharmacy [facility] [address] [place] [address] MELVIN #: -- Yes it is ok Okay to give verbal order? Please advise. Name of caller: Be Contact phone number: [phone] Relationship to Patient: Pharmacy Provider: Dr Zurita Practice: [facility] Chief Complaint/Reason for Call: tlluvldsqh-wvbuicuyqsgjm-cznvntuo 50-325-40 MG tablet [[id number]] Order Details Dose, Route, Frequency: As Directed Dispense Quantity: 30 tablet Refills: 1 Sig: take 1 tablet by mouth every 2 hours if needed for migraines - MAX OF 4 IN 24 HOURS Prescription was not sent on approved device for a controlled substance. Can try to re-send or call to validate as approved prescription. Current prescription has been de-activated Best time of day caller can be reached: any Patient advised that office/PCP has 24-48 business hours to return their call: No documented in this encounter [facility] 11-26-2023 Telephone encount er Note Yes it is ok [facility] 11-26-2023 Miscellaneous Notes Formattin g of this note might be different from the original. Yes it is ok Okay to give verbal order? Please advise. Name of caller: Be Contact phone number: [phone] Relationship to Patient: Pharmacy Provider: Dr Zurita Practice: [facility] Chief Complaint/Reason for Call: aunjckossx-isxaolzvairrt-runuggzt 50-325-40 MG tablet [[id number]] Order Details Dose, Route, Frequency: As Directed Dispense Quantity: 30 tablet Refills: 1 Sig: take 1 tablet by mouth every 2 hours if needed for migraines - MAX OF 4 IN 24 HOURS Prescription was not sent on approved device for a controlled substance. Can try to re-send or call to validate as approved prescription. Current prescription has been de-activated Best time of day caller can be reached: any Patient advised that office/PCP has 24-48 business hours to return their call: No documented in this encounter [facility] 11-26-2023 Telephone encount er Note Okay to give verbal order? Please advise. [facility] 11-26-2023 Telephone encount er Note Name of caller: Be Contact phone number: [phone] Relationship to Patient: Pharmacy Provider: Dr Zurita Practice: [facility] Chief Complaint/Reason for Call: yipygakkql-rxogwzmltyexh-wibeulfh 50-325-40 MG tablet [[id number]] Order Details Dose, Route, Frequency: As Directed Dispense Quantity: 30 tablet Refills: 1 Sig: take 1 tablet by mouth every 2 hours if needed for migraines - MAX OF 4 IN 24 HOURS Prescription was not sent on approved device for a controlled substance. Can try to re-send or call to validate as approved prescription. Current prescription has been de-activated Best time of day caller can be reached: any Patient advised that office/PCP has 24-48 business hours to return their call: No [facility] 04-04-2023 History of Presen t illness Narrative Images from the original note were not included. 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 Chronic insomnia 4. Headache disorder - gabapentin (Neurontin) 800 MG tablet; Take 4 tablets (3,200 mg) by mouth Nightly., Starting Alejandrina 04/04/2023, Until 07/03/2023, Normal Subjective HPI: She reports that she is now wearing dentures. She reports that she occl takes the butalbital but it is very infrequent. She denies sensory loss, weakness, vision loss to suggest an MS attack. She has some memory loss concerns. She is keeping up with her many projects. REVIEW OF SYSTEMS: Review of Systems Constitutional: Negative for appetite change, chills, diaphoresis, fever and unexpected weight change. HENT: Negative for dental problem and mouth sores. Eyes: Negative for discharge and itching. Respiratory: Negative for chest tightness. Cardiovascular: Negative for chest pain and leg swelling. Gastrointestinal: Negative for rectal pain and vomiting. Endocrine: Negative for polydipsia, polyphagia and polyuria. Genitourinary: Negative for decreased urine volume, flank pain and genital sores. Musculoskeletal: Negative for arthralgias. Skin: Negative for color change. Allergic/Immunologic: Negative for food allergies and immunocompromised state. Neurological: Positive for headaches. TMJ area headache Hematological: Negative for adenopathy. Does not bruise/bleed easily. Psychiatric/Behavioral: Negative for agitation, behavioral problems, decreased concentration, sleep disturbance and suicidal ideas. Allergies Allergen Reactions Bacitracin-Polymyxin B Codeine Other reaction(s): GI Upset Morphine Hives and Itching Sulfa Antibiotics Nausea Only Penicillins Hives, Itching and Rash Current Outpatient Medications: usdnkjebfu-eovbhlxkeuwrc-dedghatf 50-325-40 MG tablet, take 1 tablet by mouth every 2 hours if needed for migraines - MAX OF 4 IN 24 HOURS, Disp: , Rfl: cholecalciferol (Vitamin D-3) 25 MCG (1000 UT) capsule, Take 1 capsule by mouth daily., Disp: , Rfl: losartan (Cozaar) 50 MG tablet, Take 50 mg by mouth daily., Disp: , Rfl: sucralfate (Carafate) 1 g tablet, Take 1 g by mouth in the morning and 1 g at noon and 1 g before bedtime., Disp: , Rfl: buPROPion (Wellbutrin) 75 MG tablet, Take 1 tab daily for 14 days, then half a tab daily for 14 days, then stop bupropion (Patient not taking: Reported on 04/04/2023), Disp: 30 tablet, Rfl: 0 buPROPion SR (Wellbutrin SR) 150 MG 12 hr tablet, Take 150 mg by mouth daily., Disp: , Rfl: buPROPion XL (Wellbutrin XL) 150 MG 24 hr tablet, Take 1 tablet (150 mg) by mouth daily. Do not crush, chew, or split. (Patient not taking: Reported on 04/04/2023), Disp: 30 tablet, Rfl: 11 gabapentin (Neurontin) 800 MG tablet, take 3-3.5 tablets by mouth every evening, Disp: , Rfl: gabapentin (Neurontin) 800 MG tablet, Take 4 tablets (3,200 mg) by mouth Nightly., Disp: 360 tablet, Rfl: 3 suvorexant (Belsomra) 10 MG tablet, Take 1 tablet (10 mg) by mouth Nightly as needed for sleep. (Patient not taking: Reported on 04/04/2023), Disp: 30 tablet, Rfl: 2 Past Medical History: Diagnosis Date Multiple sclerosis (HCC) Social History Tobacco Use Smoking status: Former Smokeless tobacco: Never Substance Use Topics Alcohol use: Yes Past Surgical History: Procedure Laterality Date BREAST SURGERY CHOLECYSTECTOMY HYSTERECTOMY Family History Problem Relation Name Age of Onset Lung cancer Father Objective Vitals: BP (!) 166/80 (BP Location: Right arm, Patient Position: Sitting, BP Cuff Size: Adult) Pulse 65 Ht 5' 7 (1.702 m) Wt 176 lb 9.6 oz (80.1 kg) BMI 27.66 kg/m General Appearance: Patient is in no apparent distress. Head is normocephalic, atraumatic. Clicking of the TMJ bilaterally Cardiovascular: Regular rate and rhythm. No heart murmurs. No carotid bruit Neurologic: Mentation: Alert and oriented x 3 to person, place and time. Speech and Language: Speech and language normal Concentration and Attention: Concentration normal Memory: Memory normal Fund of Knowledge: Fund of knowledge normal Cranial Nerves: II, III, IV, V, , VII, VIII, IX, X, XI, XII examined and were intact. Motor: Strength: Strength 5 out of 5 with normal tone Alternating Movements: Normal Cogwheel Rigidity: None Tone: Tone is normal Tremor / Involuntary Movements: None Deep Tendon Reflexes: 1 out of 4 symmetrical in all four limbs. Coordination: Normal coordination upper and lower extremities Gait and Station: Station is normal. Gait is normal Data Reviewed and Summarized DIAGNOSTIC TESTING CBC: No results found for: WBC, RBC, HGB, HCT, MCV, MCH, MCHC, RDW, PLT, MPV CMP: No results found for: NA, K, CL, CO2, BUN, CREATININE, AGRATIO, LABGLOM, GLUCOSE, GLU, PROT, CALCIUM, BILITOT, ALKPHOS, AST, ALT BMP: No results found for: NA, K, CL, CO2, BUN, CREATININE, CALCIUM, LABGLOM, GLUCOSE, GLU PT/INR: No results found for: PROTIME, INR PTT: No results found for: APTT, PTT[APTT} FLP: No results found for: CHLPL, TRIG, HDL, LDLCALC, LDLDIRECT TSH: No results found for: TSH VITAMIN B12: No results found for: [id number] No results found for: PHENYTOIN, PHENOBARB, VALPROATE, CBMZ No components found for: TOPIRA @RESULTINGLABINFO@ No results found for: LEVETIRACETA, FERRITIN, CRP, SEB, ANCA No results found for: ANJEL, IMMUNOGLOBUL, OLIGOBANDS No results found for: [id number], HEPCAB No results found for: CRP, ANATITER, ANCA FERRITIN: No results found for: FERRITIN ---- No image results found. 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 Chronic insomnia 4. Headache disorder gabapentin (Neurontin) 800 MG tablet The patient has been stable for almost 18 years. Unlikely to ever have MS attack again. Continue the gabapentin. Continue the gapapentin. Due to TMJ and very infrequent. ELOISA ZURITA MD I spent 30 minutes caring for this patient today, reviewing labs, records, seeing the patient, documenting in the record and arranging for studies. documented in this encounter [facility] 04-04-2023 Miscellaneous Notes Addended by: ELOISA ZURITA on: 04/04/2023 01:33 PM Modules accepted: Orders documented in this encounter [facility] 04-04-2023 Note Addended by: ELOISA ZURITA on: 04/04/2023 01:33 PM Modules accepted: Orders [facility] 04-04-2023 Note Addended by: ELOISA ZURITA on: 04/04/2023 01:33 PM Modules accepted: Orders [facility] 07-27-2022 Note Addended by: ELOISA ZURITA on: 07/27/2022 05:50 PM Modules accepted: Orders [facility] 07-27-2022 Miscellaneous Notes Addended by: ELOISA ZURITA on: 07/27/2022 05:50 PM Modules accepted: Orders Please review below and advise. Pharmacy has been updated in pt chart. Name of caller: Leila Contact phone number: [phone] Relationship to Patient: patient Provider: Dr. Zurita Practice: [facility] Chief Complaint/Reason for Call: Patient states that her pharmacy of choice is at the [facility] in [place]. Can you please transfer her script to there. Please advise. Best time of day caller can be reached: Any Patient advised that office/PCP has 24-48 business hours to return their call: Yes Per pt chart pt has multiple refills on file. Left a message for pt to call the office. Medication name: gabapentin (Neurontin) 800 MG tablet Medication dosage: 32,000 mg (Miligrams Monthly quantity needed: 360 How many day supply requestin days Medication route: oral (PO) Medication administration time(s): bedtime (HS) If taking medication PRN, reason for taking medication: N/A If this is a controlled substance do you receive this or any other controlled medication from any other doctor or facility: N/A Ordering provider: Dr. Zurita Date of last office visit: 04/04/22 Date of next office visit: 04/04/23 Date of last refill: (see medication tab): 07/06/22 Updated/Validated preferred pharmacy: Yes [id number] P: [phone] F: [phone] Patient instructed to contact the pharmacy prior to picking up the medication: No documented in this encounter [facility] 07-27-2022 Telephone encount er Note Please review below and advise. Pharmacy has been updated in pt chart. [facility] 07-27-2022 Telephone encount er Note Name of caller: Leila Contact phone number: [phone] Relationship to Patient: patient Provider: Dr. Zurita Practice: [facility] Chief Complaint/Reason for Call: Patient states that her pharmacy of choice is at the [facility] in [place]. Can you please transfer her script to there. Please advise. Best time of day caller can be reached: Any Patient advised that office/PCP has 24-48 business hours to return their call: Yes [facility] 07-27-2022 Telephone encount er Note Per pt chart pt has multiple refills on file. Left a message for pt to call the office. [facility] 07-27-2022 Telephone encount er Note Medication name: gabapentin (Neurontin) 800 MG tablet Medication dosage: 32,000 mg (Miligrams Monthly quantity needed: 360 How many day supply requestin days Medication route: oral (PO) Medication administration time(s): bedtime (HS) If taking medication PRN, reason for taking medication: N/A If this is a controlled substance do you receive this or any other controlled medication from any other doctor or facility: N/A Ordering provider: Dr. Zurita Date of last office visit: 04/04/22 Date of next office visit: 04/04/23 Date of last refill: (see medication tab): 07/06/22 Updated/Validated preferred pharmacy: Yes [id number] [address] P: [phone] F: [phone] Patient instructed to contact the pharmacy prior to picking up the medication: No [facility] 05-17-2022 Telephone encount er Note Tell her that I had sent the script to our pharmacy team here to see if they could work a deal. I will send it to her local pharmacy now. [facility] 05-17-2022 Miscellaneous Notes Formattin g of this note might be different from the original. Tell her that I had sent the script to our pharmacy team here to see if they could work a deal. I will send it to her local pharmacy now. Name of caller: Leila Contact phone number: [phone] Relationship to Patient: patient Provider: Dr Zurita Practice: Neuro Chief Complaint/Reason for Call: Pt states checked with her insurance for the medication Belsombra and is okay with the cost. Please send prescription to the pharmacy on file [facility]. Best time of day caller can be reached: Any Patient advised that office/PCP has 24-48 business hours to return their call: Yes documented in this encounter [facility] 05-17-2022 Telephone encount er Note Name of caller: Leila Contact phone number: [phone] Relationship to Patient: patient Provider: Dr Zurita Practice: [facility] Chief Complaint/Reason for Call: Pt states checked with her insurance for the medication Belsombra and is okay with the cost. Please send prescription to the pharmacy on file [facility]. Best time of day caller can be reached: Any Patient advised that office/PCP has 24-48 business hours to return their call: Yes [facility] Evaluation note Diagnosis Headache disorder Headache documented in this encounter [facility] note* Diagnosis Clinically isolated syndrome (CMS/HCC) (HCC)- Primary Sleep-related bruxism Chronic insomnia Insomnia, unspecified Headache disorder Headache [facility] Diagnosis Primary insomnia- Primary Persistent disorder of initiating or maintaining sleep Clinically isolated syndrome (CMS/HCC) (HCC) Headache disorder Headache Essential tremor Cognitive impairment Unspecified persistent mental disorders due to conditions classified elsewhere Memory loss Fatigue, unspecified type [facility] Diagnosis Chronic insomnia Insomnia, unspecified [facility] Primary insomnia- Primary Persistent disorder of initiating or maintaining sleep Multiple sclerosis (HCC) Multiple sclerosis Cognitive impairment Unspecified persistent mental disorders due to conditions classified elsewhere Headache disorder Headache documented in this encounter [facility]* Diagnosis Multiple sclerosis (HCC) Multiple sclerosis Cognitive impairment Unspecified persistent mental disorders due to conditions classified elsewhere [facility] Diagnosis Cerebrovascular disease- Primary Unspecified cerebrovascular disease Multiple sclerosis (HCC) Multiple sclerosis Primary insomnia Persistent disorder of initiating or maintaining sleep Essential tremor Hyperlipidemia, unspecified hyperlipidemia type Hyperglycemia Other abnormal glucose [facility] noteNo assessment information availableWMer[facility] Work Phone: Evaluation note* Diagnosis Cerebrovascular disease- Primary Unspecified cerebrovascular disease Mixed hyperlipidemia Primary insomnia Persistent disorder of initiating or maintaining sleep [facility] (n[facility]ative)No reason for referral information availableWMercy [facility] Work Phone: Reason for visit Narrative* Imaging (Routine) - Closed Specialty Diagnoses / Procedures Referred By Kayla t Referred To Contact Radiology Diagnoses Multiple sclerosis (HCC) Cognitive impairment Procedures MR brain w and wo contrast Eloisa Zurita MD [address] [place] [address] [place] [address] Phone: tel: fax: Referral ID Status Reason Start Date Expiration Date Visits Re quested Visits Authorized [id number] Closed 08/03/2024 08/03/2025 1 1 [facility] Summary Purpose Family History No Family History Records FoundNo Family History Records FoundNo Family History Records Found Advance Directives No Advanced Directives Records FoundNo Advanced Directives Records FoundNo Advanced Directives Records Found Additional Source Comments INFORMATION SOURCE (unrecogn ized section and content) DATE CREATED AUTHOR 11/06/2018 [facility] DATE CREATED AUTHOR AUTHOR'S ORGANIZ ATION 09/29/2024 [facility] DATE CREATED AUTHOR AUTHOR'S ORGANIZ ATION 10/23/2024 [facility] Reason for Visit (unrecogniz ed section and content) Reason Onset Date Comments Med Refill 07/27/2022 Reason Comments Follow-up Sleeping Problem Reason Onset Date Comments Medication Problem 11/26/2023 Reason Onset Date Comments request 05/17/2022 Reason Comments Follow-up Sleeping Problem Med Management Tremors Reason Comments Follow-up Insomnia Reason Comments Follow-up Insomnia Care Teams (unrecognized sec tion and content) Account Contact Associate Relationship Specialty Start Date End Date Mathieu Boateng MD [address] [facility] [address] [place] [address] PCP - General 04/04/20 Account Contact Associate Relationship Specialty Start Date End Date Mathieu Boateng MD [address] [facility] [address] [place] [address] PCP - General 04/04/20 Account Contact Associate Relationship Specialty Start Date End Date Mathieu Boateng MD [address] [facility] [address] [place] [address] PCP - General 04/04/20 Account Contact Associate Relationship Specialty Start Date End Date Mathieu Boateng MD [address] [facility] [address] [place] [address] PCP - General 04/04/20 Account Contact Associate Relationship Specialty Start Date End Date Mathieu Boateng MD [address] [facility] [address] [place] [address] PCP - General 04/04/20 Account Contact Associate Relationship Specialty Start Date End Date Mathieu Boateng MD [address] [facility] [address] [place] [address] PCP - General 04/04/20 Account Contact Associate Relationship Specialty Start Date End Date Mathieu Boateng MD [address] [facility] [address] [place] [address] PCP - General 04/04/20 Account Contact Associate Relationship Specialty Start Date End Date Mathieu Boateng MD [address] [facility] [address] [place] [phone] [facility] General 04/04/20 Account Contact Associate Relationship Specialty Start Date End Date Mathieu Boateng MD [address] [facility] [address] [place] [phone] PCP [facility] 04/04/20 Team Status: Active Member Role Status Dates Dr. Mathieu Boateng MD Primary Care Provider Active Team Status: Inactive Member Role Status Dates Dr. Mathieu Boateng MD Primary Care Provider Active Start: September 24, 2024 End: September 24, 2024 Dr. Eloisa Zurita MD Attending Provider Active S tart: September 24, 2024 End: September 24, 2024 Dr. Eloisa Zurita MD Referring Provider Active S tart: September 24, 2024 End: September 24, 2024 Account Contact Associate Relationship Specialty Start Date End Date Mathieu Boateng MD [address] [facility] [address] [place] [phone] [facility] 04/04/20 Account Contact Associate Relationship Specialty Start Date End Date Mathieu Boateng MD [address] [facility] [address] [place] [phone] [facility] 04/04/20 Goals (unrecognized section and content) Goals may be documented in a n alternate section FOR RECORDS PERTAINING TO PATIENTS WHO ARE OR HAVE BEEN ENROLLED IN A CHEMICAL DEPENDENCY/SUBSTANCEABUSE PROGRAM, SOME INFORMATION MAY BE OMITTED. This clinical summary was aggregated from multiple sources. Caution should be exercised in using it in the provision of clinical care. This summary normalizes information from multiple sources, and as a consequence, information in this document may materially change the coding, format and clinical context of patient data. In addition, data may be omitted in some cases. CLINICAL DECISIONS SHOULD BE BASED ON THE PRIMARY CLINICAL RECORDS. [facility]. provides no warranty or guarantee of the accuracy or completeness of information in this document.
[2025-01-19 13:40] LABS: Cholesterol 221 mg/dL (<=200); Low Density Lipoprotein Calc. 127 mg/dL; Triglycerides 182 mg/dL; Very Low Density Lipoprotein 36 mg/dL (5-40); cholesterol:hdl ratio screen 3.83
== END | disposition home or self-care (01) ==
LOC: MTLAB 09:12
PROVIDERS: PCP Family Medicine; Referring Provider Psychiatry & Neurology Neurology; Visit Provider Psychiatry & Neurology Neurology
DX: E78.2 Mixed hyperlipidemia (principal)
CPT/HCPCS: 36415; 80061